=== PATIENT | male | born 1945 | race Caucasian/White ===

== ENCOUNTER 2018-03-14 12:07 | Observation (INO) ==
[2018-03-14 12:42] LABS: Mean Corpuscular HGB Conc 28.1 g/dL (31.6-35.5); Mean Corpuscular Hemoglobin 20.5 pg (28.0-33.3)
[2018-03-14 12:43] LABS: Basophils # 0.1 K/mcL (0.0-0.2); Basophils % 1.5 %; Eosinophils # 0.1 K/mcL (0.0-0.6); Eosinophils % 1.7 %; Hematocrit 35.9 % (37.5-50.1); Hemoglobin 10.1 g/dL (12.9-16.9); Immature Granulocytes % 0.1 % (0-4); Lymphocytes # 0.9 K/mcL (0.6-4.6); Lymphocytes % 12.6 %; Mean Platelet Volume 11.5 fL (9.4-12.4); Monocytes # 0.8 K/mcL (0.0-1.3); Monocytes % 11.2 %; Neutrophils # 5.3 K/mcL (1.6-8.9); Platelet Count 198 K/mcL (140-400); Red Blood Count 4.92 M/mcL (4.19-5.50); Red Cell Distribution Width 19.1 % (11.5-14.5); Segmented Neutrophils % 72.9 %
[2018-03-14 13:03] LABS: Platelet Estimate Normal (Normal)
[2018-03-14 13:04] LABS: Anisocytosis 1+ (Not Present); BUN/Creatinine Ratio 25 (6-26); Blood Urea Nitrogen 25 mg/dL (8-23); Calcium 9.1 mg/dL (8.6-10.3); Carbon Dioxide 26 mEq/L (23-29); Chloride 106 mEq/L (98-107); Glucose 135 mg/dL (70-105); Hypochromasia Present (Not Present); Microcytosis Present (Not Present); Osmolality,Calculated 300 (280-300); Ovalocytes 1+ (Not Present); Poikilocytosis 1+ (Not Present); Sodium 142 mEq/L (136-145); Troponin I < 0.03 ng/mL (< 0.04); eGFR For Non-African Americans > 60 (> 60)
[2018-03-14] MEDS ORDERED: Isovue-370 500 ML INFUS..BTL IV ONE (13:04)
--- NOTE | 2018-03-14 13:28 | Emergency Department Note ---
Addendum entered and electronically signed by Adam Brown DO 03/15/18 02:44: Addendum: Chest x-ray consistent findings for congestive heart failure. CT scan did not reveal pulmonary embolism and confirms vascular congestion to suggest acute exacerbation of heart failure. His BNP is significantly elevated 970. Will administer IV Lasix here and admit the patient for acute CHF exacerbation. His hemoglobin was also lower than prior and stool Hemoccult was positive. At this time he remains otherwise hemodynamically stable and given the hemoglobin greater than 10 does not require immediate transfusion at this time. Patient will be admitted for further observation and management. Impression is CHF exacerbation and G.I. bleed anemia. Original Note: Disposition Clinical Impression: Anemia due to GI blood loss CHF exacerbation Qualifiers: Heart failure type: unspecified Qualified Code(s): I50.9 - Heart failure, unsp ecified Disposition: Admitted As Inpatient Condition: Fair Time of Disposition: 15:12 SOB HPI - General Chief Complaint: ED Shortness of Breath/Dyspnea Stated Complaint: EMELIA Time Seen by Provider: 03/14/18 12:16 Source: patient, family Mode of arrival: ambulatory Limitations: no limitations Nursing Notes Reviewed: Yes Vital Signs Reviewed: Yes - History of Present Illness 72-year-old male history of COPD, heart failure, CAD, DVT currently on Xarelto switched from Eliquis presents emergency department with difficulty in breathing. He reports approximately 1 to 2 weeks ago stepping outside the cold air feel short of breath. Since then he has been progressively more short of breath with dyspnea on exertion and orthopnea. He denies any chest pain. He has been feeling lightheaded denies any falls or head injury. He has noticed some increase in swelling to his legs but does not appear asymmetrical. He was recently switched on his anticoagulants. No recent hospitalizations. No history of pulmonary embolism. He denies any fevers. Does report a cough. Denies any G.I. bleed symptoms such as hemoptysis, hematemesis, bloody stool or blacked tarry stool. Reports taking 20 mg of furosemide daily. Pt Subjective Complaint: shortness of breath, cough - Related Data Home Medications Medication Instructions Recorded Confirmed Furosemide [Lasix] 20 mg PO QAM 04/23/15 03/14/18 Ipratropium/Albuterol Neb [Duoneb] 3 ml IH Q6HR 10/06/15 03/14/18 Naproxen 500 mg PO BID PRN 03/14/18 03/14/18 Omeprazole [PriLOSEC] 20 mg PO BID 03/14/18 03/14/18 Rivaroxaban [Xarelto] 20 mg PO DAILY 03/14/18 03/14/18 Previous Rx's Medication Instructions Recorded Lisinopril [Zestril] 2.5 mg PO DAILY #30 tablet 04/30/15 Metoprolol XL (24 HR) Succ [Toprol 100 mg PO QAM #30 tab.er.24h 04/30/15 Xl] Allergies Allergy/AdvReac Type Severity Reaction Status Date / Time aspirin [ASA] AdvReac Gastrointestinal Verified 03/14/18 12:17 Upset All systems ED: reviewed and negative except as stated. Review of Systems: As Per HPI Constitutional: Reports: weakness. Denies: fever, chills ENT ED: Denies: congestion Cardiovascular: Reports: dyspnea on exertion, orthopnea. Denies: chest pain Respiratory: Reports: cough, dyspnea. Denies: hemoptysis Gastrointestinal: Denies: abdominal pain, nausea, vomiting Genitourinary: Denies: urgency, dysuria Musculoskeletal: Denies: back pain, neck pain Integumentary: Denies: rash, abrasion Neurological: Reports: weakness Psychiatric: Denies: anxiety, depression Endocrine: Reports: fatigue Past Medical History - Past Medical History Attestation: Yes The following information was validated with the patient. Source: patient Medical history: Reports: COPD, coronary artery disease, GERD, hyperlipidemia, hypertension, myocardial infarction Surgical history: Reports: angioplasty/stent, coronary bypass (CABG) Psychiatric history: Reports: no psych history - Social History Smoking Status: Current every day smoker Smokeless Tobacco Status: No Alcohol use: Reports: none Drug use: Reports: none Physical Exam - General Limitations: no limitations General appearance: alert, in no apparent distress - Head Head exam: atraumatic, normocephalic, normal inspection - Eye Eye exam: Present: normal appearance, PERRL, EOMI - ENT ENT exam: normal exam, normal oropharynx, mucous membranes moist - Neck Neck exam: Present: normal inspection, full ROM, trachea midline - Chest Chest inspection: Present: normal inspection, symmetric chest wall rise - Respiratory Respiratory exam: Present: normal lung sounds bilaterally. Absent: respiratory distress, wheezes - Cardiovascular Cardiovascular exam: Present: regular rate, normal rhythm, normal heart sounds. Absent: systolic murmur, diastolic murmur - Expanded Cardiovascular Exam Peripheral pulses: 2+: radial (R), radial (L) - Abdominal Exam Abdominal exam: Present: soft, Non-Tender. Absent: tenderness, distention, guarding, rebound, rigidity - Rectal Exam Technology Analyst present during exam: Yes Rectal exam: Present: normal inspection, normal rectal tone, heme (+) stool, hemorrhoids. Absent: bloody stool - Extremities Exam Extremities exam: Present: normal inspection, full ROM, normal capillary refill, pedal edema (Significant, bilateral up to mid thigh +3). Absent: tenderness, calf tenderness - Back Exam Back exam: Present: normal inspection, full ROM. Absent: tenderness - Neurological Exam Neurological exam: Present: alert, oriented X3 - Psychiatric Psychiatric exam: Present: normal affect, normal mood - Skin Skin exam: Present: warm, dry, other (Rash consistent with psoriasis mostly to his back and buttocks region with scaling). Absent: rash, cyanosis, diaphoresis Course Course Narrative: Patient presents with worsening dyspnea with increased leg swelling. On ex amination he appears fluid overload. Suspect likely CHF exacerbation. Given his history of DVT and recent switch of anticoagulants will also obtain a CT of his chest to evaluate for possible pulmonary embolism. He denies any G.I. bleed symptoms. Patient is afebrile and not tachycardic or hypoxic at this time. Patient will likely require admission - Consultations Consultation #1: Spoke with on-call hospitalist karl Willadr to admit for GI bleed anemia and C HF exacerbation. No further orders at this time Time: 15:12 Vital Signs Temperature 97.4 F L 03/14/18 12:16 Pulse Rate 81 03/14/18 12:16 Respiratory Rate 20 03/14/18 12:16 Blood Pressure 134/88 03/14/18 12:16 O2 Sat by Pulse Oximetry 100 03/14/18 12:16 Temperature 97.4 F L 03/14/18 12:16 Pulse Rate 93 03/14/18 14:30 Respiratory Rate 22 03/14/18 14:30 Blood Pressure 133/87 03/14/18 14:30 O2 Sat by Pulse Oximetry 99 03/14/18 14:30 Oxygen Delivery Oxygen Delivery Room Air Shortness of Breath/Dyspnea - MDM Narrative Medical decision making narrative: Patient was discussed with my attending physician who agrees with ED management and final disposition. They independently evaluated the patient. Please refer to their attestation to this encounter for additional information. This note was generated by [employer] voice recognition software and as a result grammatical or spelling errors may occur using this program. - Medical Records Medical records reviewed: Yes I reviewed the patient's medical records. - Lab Data Lab results reviewed: Yes I reviewed the patient's lab results. Result diagrams: 03/14/18 12:28 03/14/18 12: Lab Results 03/14/18 03/14/18 03/14/18 Range/Units 12:28 12: 12:28 WBC 7.2 (4.3-11.1) K/mcL RBC 4.92 (4.19-5.50) M/mcL Hgb 10.1 L (12.9-16.9) g/dL Hct 35.9 L (37.5-50.1) % MCV 73.0 L (83.0-100.0) fL MCH 20.5 L (28.0-33.3) pg MCHC 28.1 L (31.6-35.5) g/dL RDW 19.1 H (11.5-14.5) % Plt Count 198 (140-400) K/mcL MPV 11.5 (9.4-12.4) fL Immature Gran % 0.1 (0-4) % Seg Neutrophils % 72.9 % Lymphocytes % 12.6 % Monocytes % 11.2 % Eosinophils % 1.7 % Basophils % 1.5 % Neutrophils # 5.3 (1.6-8.9) K/mcL Lymphocytes # 0.9 (0.6-4.6) K/mcL Monocytes # 0.8 (0.0-1.3) K/mcL Eosinophils # 0.1 (0.0-0.6) K/mcL Basophils # 0.1 (0.0-0.2) K/mcL Platelet Estimate Normal (Normal) Hypochromasia Present A (Not Present) Poikilocytosis 1+ A (Not Present) Anisocytosis 1+ A (Not Present) Microcytosis Present A (Not Present) Ovalocytes 1+ A (Not Present) Sodium 142 (136-145) mEq/L Potassium 4.0 (3.5-5.1) mEq/L Chloride 106 (98-107) mEq/L Carbon Dioxide 26 (23-29) mEq/L BUN 25 H (8-23) mg/dL Creatinine 1.00 (0.70-1.30) mg/dL Est GFR ( Amer) > 60 (> 60) Est GFR (Non-Af Amer) > 60 (> 60) BUN/Creatinine Ratio 25 (6-26) Glucose 135 H (70-105) mg/dL Calculated Osmolality 300 (280-300) Calcium 9.1 (8.6-10.3) mg/dL Troponin I < 0.03 (< 0.04) ng/mL B-Natriuretic Peptide 976 H (Less than 100) pg/mL Stool Occult Bld Scrn (Negative) 03/14/18 Range/Units 14:44 WBC (4.3-11.1) K/mcL RBC (4.19-5.50) M/mcL Hgb (12.9-16.9) g/dL Hct (37.5-50.1) % MCV (83.0-100.0) fL MCH (28.0-33.3) pg MCHC (31.6-35.5) g/dL RDW (11.5-14.5) % Plt Count (140-400) K/mcL MPV (9.4-12.4) fL Immature Gran % (0-4) % Seg Neutrophils % % Lymphocytes % % Monocytes % % Eosinophils % % Basophils % % Neutrophils # (1.6-8.9) K/mcL Lymphocytes # (0.6-4.6) K/mcL Monocytes # (0.0-1.3) K/mcL Eosinophils # (0.0-0.6) K/mcL Basophils # (0.0-0.2) K/mcL Platelet Estimate (Normal) Hypochromasia (Not Present) Poikilocytosis (Not Present) Anisocytosis (Not Present) Microcytosis (Not Present) Ovalocytes (Not Present) Sodium (136-145) mEq/L Potassium (3.5-5.1) mEq/L Chloride (98-107) mEq/L Carbon Dioxide (23-29) mEq/L BUN (8-23) mg/dL Creatinine (0.70-1.30) mg/dL Est GFR ( Amer) (> 60) Est GFR (Non-Af Amer) (> 60) BUN/Creatinine Ratio (6-26) Glucose (70-105) mg/dL Calculated Osmolality (280-300) Calcium (8.6-10.3) mg/dL Troponin I (< 0.04) ng/mL B-Natriuretic Peptide (Less than 100) pg/mL Stool Occult Bld Scrn Positive A (Negative) - Radiology Data Radiology results reviewed: Yes I reviewed the patient's radiology results. Chest X-Ray 03/14/18 12:24 IMPRESSION: Features of heart failure, including stable cardiomegaly with central vascular congestion, bilateral effusions and borderline edema. D/ / Jericho Langley / Jericho Langley Interpreting Provider: Jericho Langley Chest CTA 03/14/18 13:04 IMPRESSION: Negative for acute pulmonary embolism. Evaluation limited to the segmental level in the lower lobes due to motion artifact. Features of congestive heart failure, including cardiomegaly with bilateral pleural effusions (left greater than right), abdominal ascites and soft tissue anasarca. There may mild interstitial edema present. Difficult to exclude superimposed infectious airspace disease within atelectatic left lower lobe due to phase of contrast. Mild right pleural thickening likely reflects sequela of prior chronic pleural process. Associated rounded atelectasis at the right lung base. Mildly enlarged mediastinal lymph node, presumably reactive. D/ / Jericho Langley / Jericho Langley Interpreting Provider: Jericho Langley - EKG Data EKG attestation: Yes I reviewed and interpreted this EKG. EKG results narrative: EKG performed 03/14/2018 at 1321 atrial fibrillation 72 beats per minute with paced ventricular rhythm, no ST elevation, no Sgarbossa criteria. Compared to prior EKG performed 10/06/2015 shows sinus rhythm with first-degree AV block MA interval 221, otherwise no acute ischemic changes. Attestation Statement - Attestation Attestation: I, Jackson Alberts, examined this patient and my medical decision-making was reviewed with the INSPECTION MANAGER/PA/Advanced Practice Nurse/Resident Physician. I agree with the documented findings, disposition and treatment plan as described except to the extent set forth below. 72-year-old male presents emergency Department with concerns of difficulty in breathing. Patient states he is walking outside about 2 weeks ago when he developed acute onset shortness of breath and has persisted ever since. Patient noted increased swelling in his bilateral lower extremities, he 9-year-old states he is unable to lay flat without getting becoming short of breath. He is unable to ambulate in the house and perform his activities of daily living without becoming short of breath. Patient states he has multiple clots in his legs and he is currently taking Xarelto. He recently switched from Eliquis to Xarelto. CTA of his chest did not show evidence of acute infiltrate or PE. Rectal exam had positive guaiac stool. Patient is mildly more anemic compared to his previous labs. He will be admitted to the hospitalist for further care and evaluation.
[2018-03-14] MEDS ORDERED: Furosemide 20 MG/2 ML VIAL IVP ONE (14:36)
[2018-03-14] MEDS ORDERED: Naloxone 0.4 MG/ML INJ IVP PRN (15:23)
[2018-03-14] MEDS ORDERED: Acetaminophen 325 MG TABLET PO PRN (15:23)
[2018-03-14] MEDS ORDERED: *HR* HYDROcodone/Acet 5/325 mg TABLET PO PRN (15:23)
[2018-03-14] MEDS ORDERED: Ondansetron 4 MG/2 ML VIAL IVP PRN (15:23)
--- NOTE | 2018-03-14 16:10 | Internal Med History&Physical ---
Date of Encounter: 03/14/18 Time of Encounter: 16:07 Internal Medicine - H&P: HPI Chief complaint: Shortness of breath and bilateral lower extremity edema Admitted From: Emergency Dept Plans for Post Hospital Care: Home History of present illness: Mr. Elkins is a 72 year old male known past medical history of ischemic cardiomyopathy, COPD, systolic congestive heart failure, CAD, Chronic a fib on Xarelto, DVT currently on xarelto patient does follow with the oil dispatcher Dr. Lyon as outpatient, now he presented to ER complaining about a progressively worsening shortness of breath, bilateral lower extremity edema as well as weight gain almost 8 to 10 pounds within last 10 days. He denied any chest pain. In t he ER his chest x-ray showed significant vascular condition. His chest CTA showed no acute pulmonary embolism or he does have features of congestive heart failure with Cardizem any and bilateral pleural effusion left greater than right, also have soft tissue anasarca. Past Med Surg Social Fam HX - Past Medical History Medical history: COPD, coronary artery disease, GERD, hyperlipidemia, hypertension, myocardial infarction Additional medical history: PULMONARY HTN Psychiatric history: no psych history - Past Surgical History Surgical History: angioplasty/stent, coronary bypass (CABG) Additional surgical history: CABG X 2 - Social History Smoking Status: Current every day smoker Smokeless Tobacco Status: No Alcohol use: none Drug use: none - Family History Mother Living Status: Hx Family Cardiac Disorders: Yes Hx Family Respiratory Disorders: No Hx Family Cancer: No Hx Family GI Disorders: No Hx Family Endocrine Disorder: Yes (DM) Father Living Status: Hx Family Cardiac Disorders: No Hx Family Respiratory Disorders: No Hx Family Cancer: Yes (Prostate) Hx Family GI Disorders: No Hx Family Endocrine Disorder: Yes (DM) Internal Medicine - H&P: Meds Furosemide [Lasix] 20 mg PO QAM 04/23/15 [History] Lisinopril [Zestril] 2.5 mg PO DAILY #30 tablet 04/30/15 [Rx] Metoprolol XL (24 HR) Succ [Toprol Xl] 100 mg PO QAM #30 tab.er.24h 04/30/15 [Rx] Ipratropium/Albuterol Neb [Duoneb] 3 ml IH Q6HR 10/06/15 [History] Naproxen 500 mg PO BID PRN 03/14/18 [History] Omeprazole [PriLOSEC] 20 mg PO BID 03/14/18 [History] Rivaroxaban [Xarelto] 20 mg PO DAILY 03/14/18 [History] Allergy/AdvReac Type Severity Reaction Status Date / Time aspirin [ASA] AdvReac Gastrointestinal Verified 03/14/18 12:17 Upset All Systems PM: A 10-system review of systems was performed and is negative for pertinent findings except as documented above in the HPI. Review of systems: All the systems are reviewed everything is benign except the systems and symptoms I mentioned in the history of present illness - Constitutional Vitals: Temp Pulse Resp BP Pulse Ox 97.4 F L 79 22 155/99 99 03/14/18 12:16 03/14/18 15:33 03/14/18 15:33 03/14/18 15:33 03/14/18 15:33 General appearance: Present: cooperative, A&O X 3, no acute distress, answers questions appropriately Exam: See below - Head Head exam: Present: atraumatic, normal inspection - Neck Neck exam general surgery: Present: supple - Respiratory Respiratory exam: Present: decreased breath sounds, rales, tachypnea. Absent: respiratory distress, rhonchi, wheezes - Cardiovascular Cardiovascular exam: Present: RRR, +S1, +S2. Absent: tachycardia - GI/Abdominal GI/Abdominal exam: Present: normal bowel sounds, soft. Absent: rebound, rigid, tenderness - Extremities Exam Extremities exam: Present: pedal edema (3+ pitting edema). Absent: calf tenderness, tenderness - Back Exam Back exam: Absent: CVA tenderness (L), CVA tenderness (R) - Neurological Exam Neurological exam: Present: alert, oriented X3 - Psychiatric Psychiatric exam: Present: normal affect, normal mood - Skin Skin exam: Absent: rash Internal Med - H&P Results - Labs CBC & Chem 7: 03/14/18 12:28 03/14/18 12:28 Labs: Short CBC 03/14/18 Range/Units 12:28 WBC 7.2 (4.3-11.1) K/mcL Hgb 10.1 L (12.9-16.9) g/dL Hct 35.9 L (37.5-50.1) % Plt Count 198 (140-400) K/mcL Neutrophils # 5.3 (1.6-8.9) K/mcL BMP 03/14/18 12:28 Sodium 142 Potassium 4.0 Chloride 106 Carbon Dioxide 26 BUN 25 H Creatinine 1.00 Glucose 135 H Calcium 9.1 Cardiac Enzymes 03/14/18 Range/Units 12:28 Troponin I < 0.03 (< 0.04) ng/mL - Impressions ITS Impressions Chest X-Ray 03/14/18 12:24 IMPRESSION: Features of heart failure, including stable cardiomegaly with central vascular congestion, bilateral effusions and borderline edema. D/ / Jericho Langley / Jericho Langley Interpreting Provider: Jericho Langley Chest CTA 03/14/18 13:04 IMPRESSION: Negative for acute pulmonary embolism. Evaluation limited to the segmental level in the lower lobes due to motion artifact. Features of congestive heart failure, including cardiomegaly with bilateral pleural effusions (left greater than right), abdominal ascites and soft tissue anasarca. There may mild interstitial edema present. Difficult to exclude superimposed infectious airspace disease within atelectatic left lower lobe due to phase of contrast. Mild right pleural thickening likely reflects sequela of prior chronic pleural process. Associated rounded atelectasis at the right lung base. Mildly enlarged mediastinal lymph node, presumably reactive. D/ / Jericho Lagnley / Jericho Langley Interpreting Provider: Jericho Langley - Assessment and plan (1) Acute on chronic systolic CHF (congestive heart failure) Current Visit: Yes Status: Acute Assessment and plan: Place the patient into Tele for observation reviewed his echocardiogram from 2015 showed LVEF 20-25% his chest x-ray findings, anasarca presentation, elevated BNP and weight gain he is in acute exacerbation need aggressive IV databases started him on IV Lasix 40 mg b.i.d. strict I & O daily weights continue him on tele will trend on his troponin (2) Anasarca Current Visit: Yes Status: Acute Assessment and plan: due to systolic CHF exacerbation continue aggressive databases (3) Chronic a-fib Current Visit: Yes Status: Acute Assessment and plan: Rate controlled with the metoprolol on Xarelto for anti coag (4) Hypertension Current Visit: No Status: Acute Assessment and plan: Stable with current home medications resumed all home medications Qualifiers: Hypertension type: essential hypertension Qualified Code(s): I10 - Essential (primary) hypertension (5) CAD (coronary artery disease) Current Visit: No Status: Chronic Assessment and plan: No chest pain continue home medications Qualifiers: Coronary Disease-Associated Artery/Lesion type: [place] artery [place] vs. transplanted heart: [place] heart Associated angina: without angina Qualified Code(s): I25.10 - Atherosclerotic heart disease of [place] coronary artery without angina pectoris (6) COPD (chronic obstructive pulmonary disease) Current Visit: No Status: Chronic Assessment and plan: Not in exacerbation Duonebs as needed for now Qualifiers: COPD type: emphysema Emphysema type: unspecified Qualified Code(s): J43.9 - Emphysema, unspecified (7) Hx of CABG Current Visit: No Status: Chronic (8) Ischemic cardiomyopathy Current Visit: No Status: Chronic (9) Tobacco abuse Current Visit: No Status: Chronic Assessment and plan: Counseled to quit smoking placed on nicotine patch - Time Spent With Patient Total time spent is greater than 50% in coordination of care (as documented) at patient's floor/unit and/or counseling patient:
--- NOTE | 2018-03-14 16:38 | Electrocardiograph Report ---
[place] [facility] [email or web address] Test Date: 2018-03-14 Pat Name: Ruddy Elkins Department: [id number] Room: 3B33 Gender: M Field Reimbursement Manager: : 1945 Requested By: Adam Brown Order Number: [id number] Reading MD: Radu Gutiérrez Measurements Intervals [place] Rate: 72 P: [place]: QRS: 243 QRSD: 168 T: 58 QT: 491 QTc: 538 Interpretive Statements Afib/flut and V-paced complexes No further analysis attempted due to paced rhythm Electronically Signed On 03-14-2018 16:36:40 EST by Radu Gutiérrez
[2018-03-14] MEDS ORDERED: Perflutren Lipid Microsphere 1.3 ML in 0.9 % Sodium Chloride 8.7 ML IVP ONE (19:03)
[2018-03-14] MEDS: Ipratropium/Albuterol Neb 3 ML IH SCH ×2 (19:15→22:41)
[2018-03-14] MEDS: Furosemide 40 MG/4 ML VIAL IVP SCH (20:55)
[2018-03-15 01:11] LABS: Mean Corpuscular HGB Conc 28.2 g/dL (31.6-35.5); Mean Corpuscular Hemoglobin 20.6 pg (28.0-33.3)
[2018-03-15 01:12] LABS: Hematocrit 34.4 % (37.5-50.1); Hemoglobin 9.7 g/dL (12.9-16.9); Platelet Count 195 K/mcL (140-400); Red Blood Count 4.71 M/mcL (4.19-5.50); Red Cell Distribution Width 18.6 % (11.5-14.5)
[2018-03-15 01:32] LABS: Alanine Aminotransferase 9 Units/L (7-52); Albumin 3.7 g/dL (3.5-5.7); Albumin/Globulin Ratio 1.3 (1.1-2.2); Alkaline Phosphatase 75 Units/L (34-104); Aspartate Amino Transferase 19 Units/L (13-39); BUN/Creatinine Ratio 20 (6-26); Bilirubin,Total 0.9 mg/dL (0.3-1.0); Blood Urea Nitrogen 23 mg/dL (8-23); Calcium 8.9 mg/dL (8.6-10.3); Carbon Dioxide 27 mEq/L (23-29); Chloride 105 mEq/L (98-107); Cholesterol 96 mg/dL (< 200); Globulin 2.8 g/dL (2.4-3.5); Glucose 120 mg/dL (70-105); HDL Cholesterol 24 mg/dL (40-59); LDL Cholesterol,Calculated 60 mg/dL (0-99); Magnesium 1.7 mg/dL (1.6-2.6); Osmolality,Calculated 297 (280-300); Potassium 3.9 mEq/L (3.5-5.1); Sodium 141 mEq/L (136-145); Total Protein 6.5 g/dL (6.4-8.9); Triglycerides 61 mg/dL (< 150); eGFR For Non-African Americans > 60 (> 60)
[2018-03-15] MEDS: Ipratropium/Albuterol Neb 3 ML IH SCH ×3 (04:30→15:40)
[2018-03-15] MEDS: Furosemide 40 MG/4 ML VIAL IVP SCH (07:49)
[2018-03-15] MEDS ORDERED: Metoprolol XL (24 HR) Succ 50 MG TAB.ER.24H PO SCH (09:00)
[2018-03-15] MEDS ORDERED: *HR* Rivaroxaban 10 MG TABLET PO SCH (09:00)
[2018-03-15 12:23] VITALS: BP 122/74
--- NOTE | 2018-03-15 14:05 | Discharge Summary ---
- NOTES TO OUTPATIENT PROVIDER Notes to Outpatient Provider: Follow up with PCP in one week. Follow-up with cardiology Dr. Lyon in one to 2 weeks. please take Lasix 40 mg PO b.i.d. for 3 days then continue 40 mg PO daily Date of Encounter: 03/15/18 Time of Encounter: 14:01 - Discharge Diagnosis (1) Acute on chronic systolic CHF (congestive heart failure) Priority: Primary Status: Acute (2) Anasarca Priority: Primary Status: Acute (3) Chronic a-fib Priority: Secondary Status: Acute (4) Hypertension Priority: Secondary Status: Acute Qualifiers: Hypertension type: essential hypertension Qualified Code(s): I10 - Essential (primary) hypertension (5) CAD (coronary artery disease) Priority: Secondary Status: Chronic Qualifiers: Coronary Disease-Associated Artery/Lesion type: [place] artery [place] vs. transplanted heart: [place] heart Associated angina: without angina Qualified Code(s): I25.10 - Atherosclerotic heart disease of [place] coronary artery without angina pectoris (6) COPD (chronic obstructive pulmonary disease) Priority: Secondary Status: Chronic Qualifiers: COPD type: emphysema Emphysema type: unspecified Qualified Code(s): J43.9 - Emphysema, unspecified (7) Hx of CABG Priority: Secondary Status: Chronic (8) Ischemic cardiomyopathy Priority: Secondary Status: Chronic (9) Tobacco abuse Priority: Secondary Status: Chronic Hospital course: Mr. Elkins is a 72 year old male known past medical history of ischemic cardiomyopathy, COPD, systolic congestive heart failure, CAD, Chronic a fib on Xarelto, DVT currently on xarelto patient does follow with the rougher helper Dr. Lyon as outpatient, now he presented to ER complaining about a progressively worsening shortness of breath, bilateral lower extremity edema as well as weight gain almost 8 to 10 pounds within last 10 days. He denied any chest pain. In the ER his chest x-ray showed significant vascular condition. His chest CTA showed no acute pulmonary embolism or he does have features of congestive heart failure with Cardizem any and bilateral pleural effusion left greater than right, also have soft tissue anasarca. Patient was admitted in the hospital and placed my installation helper. His serial troponin came back is negative. He was started on aggressive IV diuresis with Lasix 40mg BID. Patient stated he is feeling a lot better today. He still have moderate edema in bilateral lower extremities. Patient wanted to go home today. His echocardiogram came back as LVEF at 25% with the moderately dilated left ventricle and severe pulmonary hypertension. Complaint Analyst the patient quit smoking. Also asked the patient to take Lasix 40 mg PO b.i.d. for 3 days then continue daily. Recommend to follow with the primary care physician as an outpatient - Time Spent with Patient Total time spent providing and/or coordinating discharge services: - Discharge Medications Prescriptions: Furosemide [Lasix] 40 mg PO DAILY #35 tablet Potassium Chloride [K-Tab ER] 20 meq PO DAILY #30 tablet.er Home Medications: Lisinopril [Zestril] 2.5 mg PO DAILY #30 tablet 04/30/15 [Rx] Metoprolol XL (24 HR) Succ [Toprol Xl] 100 mg PO QAM #30 tab.er.24h 04/30/15 [Rx] Ipratropium/Albuterol Neb [Duoneb] 3 ml IH Q6HR 10/06/15 [History] Omeprazole [PriLOSEC] 20 mg PO BID 03/14/18 [History] Rivaroxaban [Xarelto] 20 mg PO DAILY 03/14/18 [History] Furosemide [Lasix] 40 mg PO DAILY #35 tablet 03/15/18 [Rx] Potassium Chloride [K-Tab ER] 20 meq PO DAILY #30 tablet.er 03/15/18 [Rx] Allergies/Adverse Reactions: Allergy/AdvReac Type Severity Reaction Status Date / Time aspirin [ASA] AdvReac Gastrointestinal Verified 03/14/18 12:17 Upset Date of admission: 03/14/18 15:32 Primary care physician: Jose Daniel Cordero Colopy - Constitutional Vitals: Temp Pulse Resp BP Pulse Ox 97.8 F 75 16 122/74 97 03/15/18 12:21 03/15/18 12:21 03/15/18 12:21 03/15/18 12:21 03/15/18 12:21 General appearance: Present: cooperative, A&O X 3, no acute distress, answers questions appropriately Exam: Gen: Alert, awake, Oriented to time,place and person Chest: Diminished breath sounds B/L, No wheezing, No crackles, No rales Heart: S1S2+ RRR No murmurs Abd: Soft, NT, BS +, No organomegaly Ext: moderate edema, pulses are palpable, No calf tenderness Neuro : Benign findings Skin: No rash. - Patient Status Disposition: Home, Self-Care Condition: Good Overall status at discharge: patient is back to baseline - Discharge Instructions Follow Up With: Jose Daniel Acosta DO [Primary Care Provider] - - Diet and Activity Activity: increase activity as tolerated Diet: low salt diet
== END 2018-03-15 17:03 | disposition home or self-care (01) ==
LOC: 3BNU 12:07 → EMEROOARM 12:07 → SUATTDRO 15:32 → 3BNU 15:56
PROVIDERS: ADMIT Internal Medicine; ATTEND Family Medicine

== ENCOUNTER 2018-09-03 13:27 | Inpatient (IN) ==
[2018-09-03] MEDS ORDERED: Ipratropium/Albuterol Neb 3 ML IH ONE (13:40)
--- NOTE | 2018-09-03 13:48 | Emergency Department Note ---
Disposition Clinical Impression: CHF exacerbation Qualifiers: Heart failure type: unspecified Qualified Code(s): I50.9 - Heart failure, unspecified Disposition: Admitted As Inpatient Condition: Good Time of Disposition: 16:16 General Adult HPI - General Chief complaint: ED Shortness of Breath/Dyspnea Stated complaint: EMELIA Time Seen by Provider: 09/03/18 13:31 Source: patient, family Mode of arrival: ambulatory Limitations: no limitations Nursing Notes Reviewed: Yes Vital Signs Reviewed: Yes - History of Present Illness HPI Narrative: 73-year-old male with significant past medical history of COPD not on any current oxygen at home and CHF presenting to the emergency part chief complaint difficulty in breathing. Patient states for the past 2 days he has had increased work of breathing. He has also gained 25 pounds over the past few weeks. He denies any fevers or changes in his sputum production. Denies any known sick contacts. He states he has had some associated nausea and feels that his abdomen is distended but there is no pain, vomiting or changes in his bowel movements. Denies any chest pain at this time. Takes a baby aspirin daily. Pain Scale: 5 - Related Data Home Medications Medication Instructions Recorded Confirmed Omeprazole [PriLOSEC] 20 mg PO BID 03/14/18 06/22/18 Rivaroxaban [Xarelto] 20 mg PO DAILY 03/14/18 06/23/18 Albuterol Neb [Proventil Neb] 2.5 mg IH Q8H PRN 06/23/18 06/23/18 Albuterol Sulfate [Ventolin Hfa] 2 puff IH Q4-6H PRN 06/23/18 06/23/18 Metoprolol Succinate [Toprol Xl] 100 mg PO DAILY 06/23/18 06/23/18 Multivitamin [Daily Multiple 1 tab PO DAILY 06/23/18 06/23/18 Vitamin] Previous Rx's Medication Instructions Recorded Potassium Chloride [K-Tab ER] 20 meq PO DAILY #30 tablet.er 03/15/18 Doxycycline 100 mg PO BID #15 capsule 06/27/18 Ferrous Sulfate 325 mg PO DAILY #30 tablet 06/27/18 Furosemide [Lasix] 20 mg PO BID #60 tablet 06/27/18 Lisinopril [Zestril] 2.5 mg PO DAILY #30 tablet 06/27/18 Metoprolol XL (24 HR) Succ [Toprol 150 mg PO QAM #90 tab.er.24h 06/27/18 Xl] Warfarin [Coumadin] 4 mg PO 1800 #15 tablet 06/27/18 Allergies Allergy/AdvReac Type Severity Reaction Status Date / Time aspirin [ASA] AdvReac Gastrointestinal Verified 09/03/18 13:34 Upset All systems ED: reviewed and negative except as stated. Constitutional: Reports: weight change. Denies: fever Eyes: Reports: as per HPI ENT ED: Reports: as per HPI Cardiovascular: Reports: dyspnea on exertion. Denies: chest pain Respiratory: Reports: cough, dyspnea Gastrointestinal: Reports: nausea. Denies: abdominal pain Genitourinary: Reports: as per HPI Musculoskeletal: Reports: as per HPI Integumentary: Reports: as per HPI Neurological: Reports: as per HPI Psychiatric: Reports: as per HPI Endocrine: Reports: as per HPI Hematological/Lymphatic: Reports: as per HPI Allergic/Immunologic: Reports: as per HPI Past Medical History - Past Medical History Attestation: Yes The following information was validated with the patient. Medical history: Reports: CHF, COPD, coronary artery disease, GERD, hyperlipidemia, hypertension, myocardial infarction Surgical history: Reports: angioplasty/stent, coronary bypass (CABG) Psychiatric history: Reports: no psych history - Social History Smoking Status: Current every day smoker Smokeless Tobacco Status: No Alcohol use: Reports: none Drug use: Reports: none Physical Exam - General Limitations: no limitations General appearance: alert, in no apparent distress - Head Head exam: atraumatic, normocephalic, normal inspection - Eye Eye exam: Absent: scleral icterus - ENT ENT exam: mucous membranes moist - Neck Neck exam: Present: full ROM - Chest Chest inspection: Present: symmetric chest wall rise - Respiratory Respiratory exam: Present: other (Is not sure and expiratory wheezing in the upper lung villatoro. Decreased breath sounds in bilateral lower villatoro) - Cardiovascular Cardiovascular exam: Present: normal rhythm, tachycardia, normal heart sounds - Abdominal Exam Abdominal exam: Present: soft, Non-Tender. Absent: guarding, rebound - Extremities Exam Extremities exam: Present: pedal edema (2+ pitting edema bilateral lower extremities) - Neurological Exam Neurological exam: Present: alert, oriented X3 - Psychiatric Psychiatric exam: Present: normal affect - Skin Skin exam: Present: warm Course Course Narrative: 73-year-old male presenting to the emergency department for increased work of breathing. In the room he is to get neck and tachycardic. Physical exam is significant for inspiratory and expiratory wheezing and decreased breath sounds in the bilateral bases. He does have 2+ pitting edema in the bilateral lower extremities and some mild abdominal distention although his abdomen is soft and nontender. Concern for CHF exacerbation versus COPD exacerbation. Due to his increased work of breathing will place him on BiPAP. We will obtain basic laboratory analysis including troponin, EKG and chest x-ray. Disposition most likely admission but pending workup. Patient agrees with this plan. - Reevaluation(s) Reevaluation #1: Patient feeling significantly better after being placed on BiPAP. Laboratory analysis shows chronic anemia, elevated lactic acid and elevated BNP. EKG initially completed was concerning for possible pacer spikes going off therefore his defibrillator was interrogated and did not show any signs of firing. Chest x-ray shows Bilateral pleural effusions with possible underlying infectious etiology. At this time will cover the patient with azithromycin and ceftriaxone. Blood cultures of already been collected. Due to his fluid overloaded on exam and chest x-ray along with elevated BNP we will not provide fluid resuscitation at this time. We will provide with 40 mg of IV Lasix. I spoke with the hospitalist on-call who agrees to accept the patient for admission at this time. He remains alert and oriented 3 and hemodynamically stable. Patient agrees with this plan. Vital Signs Temperature 97.5 F L 09/03/18 13:32 Pulse Rate 125 09/03/18 13:32 Respiratory Rate 25 09/03/18 13:32 Blood Pressure 143/79 09/03/18 13:32 O2 Sat by Pulse Oximetry 98 09/03/18 13:32 Temperature 97.5 F L 09/03/18 13:32 Pulse Rate 100 09/03/18 15:09 Respiratory Rate 18 09/03/18 15:36 Blood Pressure 112/84 09/03/18 15:36 O2 Sat by Pulse Oximetry 100 09/03/18 15:36 Oxygen Delivery Oxygen Delivery Room Air Medical Decision Making - Lab Data Result diagrams: 09/03/18 13:47 09/03/18 13:47 Lab Results 09/03/18 09/03/18 09/03/18 Range/Units 13:47 13:47 13:47 WBC 7.0 (4.3-11.1) K/mcL RBC 4.80 (4.19-5.50) M/mcL Hgb 9.7 L (12.9-16.9) g/dL Hct 35.3 L (37.5-50.1) % MCV 73.5 L (83.0-100.0) fL MCH 20.2 L (28.0-33.3) pg MCHC 27.5 L (31.6-35.5) g/dL RDW 22.1 H (11.5-14.5) % Plt Count 173 (140-400) K/mcL MPV TNP Immature Gran % 0.4 (0-4) % Seg Neutrophils % 77.3 % Lymphocytes % 8.6 % Monocytes % 11.4 % Eosinophils % 1.0 % Basophils % 1.3 % Neutrophils # 5.4 (1.6-8.9) K/mcL Lymphocytes # 0.6 (0.6-4.6) K/mcL Monocytes # 0.8 (0.0-1.3) K/mcL Eosinophils # 0.1 (0.0-0.6) K/mcL Basophils # 0.1 (0.0-0.2) K/mcL Platelet Estimate Normal (Normal) Hypochromasia Present A (Not Present) Anisocytosis 2+ A (Not Present) Microcytosis Present A (Not Present) Sodium 140 (136-145) mEq/L Potassium 3.8 (3.5-5.1) mEq/L Chloride 102 (98-107) mEq/L Carbon Dioxide 28 (23-29) mEq/L BUN 15 (8-23) mg/dL Creatinine 1.00 (0.70-1.30) mg/dL Est GFR ( Amer) > 60 (> 60) Est GFR (Non-Af Amer) > 60 (> 60) BUN/Creatinine Ratio 15 (6-26) Glucose 134 H (70-105) mg/dL Calculated Osmolality 293 (280-300) Lactic Acid 2.6 H (0.5-2.2) mmol/L Calcium 9.5 (8.6-10.3) mg/dL Magnesium 1.7 (1.6-2.6) mg/dL Total Bilirubin 1.7 H (0.3-1.0) mg/dL Direct Bilirubin 0.8 H (0.0-0.2) mg/dL Indirect Bilirubin 0.9 (0.0-1.2) mg/dL AST 16 (13-39) Units/L ALT 9 (7-52) Units/L Alkaline Phosphatase 69 (34-104) Units/L Troponin I 0.03 (< 0.04) ng/mL B-Natriuretic Peptide (Less than 100) pg/mL Serum Total Protein 7.1 (6.4-8.9) g/dL Albumin 3.9 (3.5-5.7) g/dL Globulin 3.2 (2.4-3.5) g/dL Albumin/Globulin Ratio 1.2 (1.1-2.2) Urine Color (Yellow) Urine Clarity (Clear) Urine pH (5.0-8.0) pH Units Ur Specific [place] (1.010-1.025) Urine Protein (Neg-Trace) mg/dL Urine Glucose (UA) (Normal) mg/dL Urine Ketones (Negative) mg/dL Urine Blood (Negative) Urine Nitrite (Negative) Urine Bilirubin (Negative) Urine Urobilinogen (Normal) mg/dL Ur Leukocyte Esterase (Negative) Ur Culture Indicated? (NO) 09/03/18 09/03/18 Range/Units 13:47 15:01 WBC (4.3-11.1) K/mcL RBC (4.19-5.50) M/mcL Hgb (12.9-16.9) g/dL Hct (37.5-50.1) % MCV (83.0-100.0) fL MCH (28.0-33.3) pg MCHC (31.6-35.5) g/dL RDW (11.5-14.5) % Plt Count (140-400) K/mcL MPV Immature Gran % (0-4) % Seg Neutrophils % % Lymphocytes % % Monocytes % % Eosinophils % % Basophils % % Neutrophils # (1.6-8.9) K/mcL Lymphocytes # (0.6-4.6) K/mcL Monocytes # (0.0-1.3) K/mcL Eosinophils # (0.0-0.6) K/mcL Basophils # (0.0-0.2) K/mcL Platelet Estimate (Normal) Hypochromasia (Not Present) Anisocytosis (Not Present) Microcytosis (Not Present) Sodium (136-145) mEq/L Potassium (3.5-5.1) mEq/L Chloride (98-107) mEq/L Carbon Dioxide (23-29) mEq/L BUN (8-23) mg/dL Creatinine (0.70-1.30) mg/dL Est GFR ( Amer) (> 60) Est GFR (Non-Af Amer) (> 60) BUN/Creatinine Ratio (6-26) Glucose (70-105) mg/dL Calculated Osmolality (280-300) Lactic Acid (0.5-2.2) mmol/L Calcium (8.6-10.3) mg/dL Magnesium (1.6-2.6) mg/dL Total Bilirubin (0.3-1.0) mg/dL Direct Bilirubin (0.0-0.2) mg/dL Indirect Bilirubin (0.0-1.2) mg/dL AST (13-39) Units/L ALT (7-52) Units/L Alkaline Phosphatase (34-104) Units/L Troponin I (< 0.04) ng/mL B-Natriuretic Peptide 715 H (Less than 100) pg/mL Serum Total Protein (6.4-8.9) g/dL Albumin (3.5-5.7) g/dL Globulin (2.4-3.5) g/dL Albumin/Globulin Ratio (1.1-2.2) Urine Color Yellow (Yellow) Urine Clarity Clear (Clear) Urine pH 7.5 (5.0-8.0) pH Units Ur Specific [place] < 1.005 L (1.010-1.025) Urine Protein Trace (Neg-Trace) mg/dL Urine Glucose (UA) Normal (Normal) mg/dL Urine Ketones Negative (Negative) mg/dL Urine Blood Negative (Negative) Urine Nitrite Negative (Negative) Urine Bilirubin Negative (Negative) Urine Urobilinogen 4.0 H (Normal) mg/dL Ur Leukocyte Esterase Negative (Negative) Ur Culture Indicated? NO (NO) - EKG Data EKG #1 EKG attestation: Yes I reviewed and interpreted this EKG. EKG results narrative: Paced rhythm. 107 beats per minute. MI interval 112, QRS 125, QTC 47. No sign of acute ST segment elevation or ischemia. EKG #2 EKG attestation: Yes I reviewed and interpreted this EKG. EKG results narrative: Paced rhythm. 107 beats per minute. MI interval 112, QRS 125, QTC 47. No sign of acute ST segment elevation or ischemia.
[2018-09-03 14:15] LABS: Immature Granulocytes % 0.4 % (0-4)
[2018-09-03 14:16] LABS: Basophils # 0.1 K/mcL (0.0-0.2); Basophils % 1.3 %; Eosinophils # 0.1 K/mcL (0.0-0.6); Hematocrit 35.3 % (37.5-50.1); Hemoglobin 9.7 g/dL (12.9-16.9); Lymphocytes # 0.6 K/mcL (0.6-4.6); Lymphocytes % 8.6 %; Mean Corpuscular HGB Conc 27.5 g/dL (31.6-35.5); Mean Corpuscular Hemoglobin 20.2 pg (28.0-33.3); Mean Corpuscular Volume 73.5 fL (83.0-100.0); Monocytes # 0.8 K/mcL (0.0-1.3); Monocytes % 11.4 %; Neutrophils # 5.4 K/mcL (1.6-8.9); Platelet Count 173 K/mcL (140-400); Red Cell Distribution Width 22.1 % (11.5-14.5); Segmented Neutrophils % 77.3 %
[2018-09-03 14:26] LABS: Alanine Aminotransferase 9 Units/L (7-52); Albumin 3.9 g/dL (3.5-5.7); Albumin/Globulin Ratio 1.2 (1.1-2.2); Alkaline Phosphatase 69 Units/L (34-104); Aspartate Amino Transferase 16 Units/L (13-39); BUN/Creatinine Ratio 15 (6-26); Bilirubin,Direct 0.8 mg/dL (0.0-0.2); Bilirubin,Indirect 0.9 mg/dL (0.0-1.2); Bilirubin,Total 1.7 mg/dL (0.3-1.0); Blood Urea Nitrogen 15 mg/dL (8-23); Calcium 9.5 mg/dL (8.6-10.3); Carbon Dioxide 28 mEq/L (23-29); Chloride 102 mEq/L (98-107); Globulin 3.2 g/dL (2.4-3.5); Glucose 134 mg/dL (70-105); Magnesium 1.7 mg/dL (1.6-2.6); Osmolality,Calculated 293 (280-300); Potassium 3.8 mEq/L (3.5-5.1); Sodium 140 mEq/L (136-145); Total Protein 7.1 g/dL (6.4-8.9); Troponin I 0.03 ng/mL (< 0.04); eGFR For Non-African Americans > 60 (> 60)
[2018-09-03 14:37] LABS: Anisocytosis 2+ (Not Present); Hypochromasia Present (Not Present); Microcytosis Present (Not Present); Platelet Estimate Normal (Normal)
[2018-09-03] MEDS ORDERED: Furosemide 40 MG/4 ML VIAL IVP ONE (15:03)
[2018-09-03] MEDS ORDERED: Azithromycin 500 MG in D5% in Water 250 ML IVPB ONE (15:39)
[2018-09-03] MEDS ORDERED: cefTRIAXone 1,000 MG in Water for inj. (sterile) 20 ML 10 ML IVP ONE (15:40)
--- NOTE | 2018-09-03 15:49 | Internal Med History&Physical ---
Date of Encounter: 09/03/18 Time of Encounter: 15:44 Internal Medicine - H&P: HPI Chief complaint: SOB Admitted From: Emergency Dept Plans for Post Hospital Care: Home History of present illness: Mr. 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 He gained almost 25 pounds in last 2-3 weeks. Patient stated that he has been compliant on his medication and did not miss any diuretics. In ER patient was found tachycardic tachypneic using accessory muscles but not hypoxic therefore BiPAP was started. Bilateral wheezing and crackles was found on lung examination therefore he got treated for COPD and CHF with DuoNeb and 1 dose of Lasix. Rocephin and Zithromax was also given with concern of pneumonia. Initial lab with normal white count, raised lactic acid and raised BNP. ER physician called on-call hospitalists for the admission for further management of shortness of breath with possible CHF exacerbation COPD exacerbation, pneumonia and increased lactic acid. He complain of chills nausea cough shortness of breath generalized weakness fa tigue decreased appetite. He denies fever vomiting chest pain headache dizziness abdominal pain diarrhea urinary complaint Past Med Surg Social Fam HX - Past Medical History Medical history: CHF, COPD, coronary artery disease, GERD, hyperlipidemia, hypertension, myocardial infarction Additional medical history: PULMONARY HTN Psychiatric history: no psych history - Past Surgical History Surgical History: angioplasty/stent, coronary bypass (CABG) Additional surgical history: CABG X 2 - Social History Smoking Status: Current every day smoker Smokeless Tobacco Status: No Alcohol use: none Drug use: none - Family History Mother Family Member Ethnicity: Non- Living Status: Hx Family Cardiac Disorders: No Hx Family Respiratory Disorders: No Hx Family Cancer: No Hx Family GI Disorders: No Hx Family Endocrine Disorder: Yes Father Adopted: No Family Member Ethnicity: Non- Living Status: Hx Family Cardiac Disorders: No Hx Family Respiratory Disorders: No Hx Family Cancer: Yes Hx Family GI Disorders: No Hx Family Endocrine Disorder: No Hx Family Neuromuscular Disorders: No Hx Family Neurologic Disorders: No Hx Family HEENT Disorders: No Hx Family Autoimmune Disorders: No Internal Medicine - H&P: Meds Omeprazole [PriLOSEC] 20 mg PO QAM 03/14/18 [History] Albuterol Neb [Proventil Neb] 2.5 mg IH Q8H PRN 06/23/18 [History] Albuterol Sulfate [Ventolin Hfa] 2 puff IH Q4-6H PRN 06/23/18 [History] Metoprolol Succinate [Toprol Xl] 100 mg PO DAILY 06/23/18 [History] Multivitamin [Daily Multiple Vitamin] 1 tab PO DAILY 06/23/18 [History] Lisinopril [Zestril] 2.5 mg PO DAILY #30 tablet 06/27/18 [Rx] Aspirin [Lo-Dose Aspirin EC] 81 mg PO DAILY 09/03/18 [History] Furosemide [Lasix] 40 mg PO DAILY 09/03/18 [History] Potassium Chloride [K-Tab ER] 20 meq PO Q48H 09/03/18 [History] Allergy/AdvReac Type Severity Reaction Status Date / Time aspirin [ASA] AdvReac Gastrointestinal Verified 09/03/18 13:34 Upset All Systems PM: A 10-system review of systems was performed and is negative for pertinent findings except as documented above in the HPI. - Constitutional Vitals: Temp Pulse Resp BP Pulse Ox 97.5 F L 100 19 121/79 99 09/03/18 13:32 09/03/18 15:09 09/03/18 15:09 09/03/18 15:09 09/03/18 15:09 Exam: General appearance: Patient is on BiPAP. Family at bedside. Head exam: Atraumatic Eye exam: EOMI, PERRLA. watr bag under eyes ENT exam: Moist oral mucosa Neck nontender, supple Respiratory exam: Decreased breath sound but bilateral fine crackles and scattered expiratory wheezing bilateral. Cardiovascular exam: Tachycardia with regular rhythm. no systolic murmur Abdominal exam: Soft, nontender, nondistended, positive bowel sounds Extremities exam: No calf tenderness, +2 pedal edema Present: Skin-no rash, warm, dry, intact Neurological exam: Alert, awake, oriented 3, CN II-XII intact, no focal deficits. Internal Med - H&P Results - Labs CBC & Chem 7: 09/03/18 13:47 09/03/18 13:47 Labs: Short CBC 09/03/18 Range/Units 13:47 WBC 7.0 (4.3-11.1) K/mcL Hgb 9.7 L (12.9-16.9) g/dL Hct 35.3 L (37.5-50.1) % Plt Count 173 (140-400) K/mcL Neutrophils # 5.4 (1.6-8.9) K/mcL BMP 09/03/18 13:47 Sodium 140 Potassium 3.8 Chloride 102 Carbon Dioxide 28 BUN 15 Creatinine 1.00 Glucose 134 H Calcium 9.5 Cardiac Enzymes 09/03/18 Range/Units 13:47 Troponin I 0.03 (< 0.04) ng/mL Liver Function 09/03/18 Range/Units 13:47 Total Bilirubin 1.7 H (0.3-1.0) mg/dL Direct Bilirubin 0.8 H (0.0-0.2) mg/dL AST 16 (13-39) Units/L ALT 9 (7-52) Units/L Alkaline Phosphatase 69 (34-104) Units/L Albumin 3.9 (3.5-5.7) g/dL - Impressions ITS Impressions Chest X-Ray 09/03/18 13:39 IMPRESSION: Pacemaker. Cardiomegaly. Atelectasis or infiltrates in the lung bases with bilateral pleural effusions. Follow up to resolution is suggested. D/ / 09/03/2018 14:33:32 Leta Stewart MD / pool Interpreting Provider: Leta Stewart MD - Assessment and Plan (1) SOB (shortness of breath) Current Visit: Yes Status: Acute Assessment and plan: Progressively worse. Multiple differential cardio and pulmonary etiology. Possible CHF exacerbation as patient has a lung, pedal edema and raise BNP with underlying low EF and severe cardiomyopathy. Possible COPD exacerbation as patient has wheezing bilateral. Possible pneumonia with shortness of breath, productive cough, chest x-ray with questionable infiltrate bilateral. Continue IV antibiotic, IV Lasix, IV Solu-Medrol, oxygen supplementation, DuoNeb . please see below as mentioned. will admit pt in 2N. (2) CHF exacerbation Current Visit: Yes Status: Acute Assessment and plan: Most likely based on clinical presentation short of breath cough pedal edema raised BNP. Lasix 40 mg IV given in the ER. Lasix 40 mg IV twice a day, a strict I&O's and daily weight. Will consult cardiology if needed Chest x-ray IMPRESSION: Pacemaker. Cardiomegaly. Atelectasis or infiltrates in the lung bases with bilateral pleural effusions. Follow up to resolution is suggested. (3) Pneumonia Current Visit: Yes Status: Acute Assessment and plan: Clinically patient has cough with whitish sputum, shortness of breath, crackles, chest x-ray with possible infiltrate-possible community-acquired pneumonia. Rocephin and Zithromax as started in the ER. sputum culture ordered Respiratory panel ordered Urine antigen ordered Qualifiers: Pneumonia type: due to unspecified organism Laterality: unspecified laterality Lung location: unspecified part of lung Qualified Code(s): J18.9 - Pneumonia, unspecified organism (4) COPD (chronic obstructive pulmonary disease) Current Visit: No Status: Chronic Assessment and plan: Acute exacerbation as patient having wheezing. IV Solu-Medrol, DuoNeb, s pirometry, oxygen supplementation. Zithromax already started. Educated about stopping tobacco. At present patient is on BiPAP. ABG stat ordered. Qualifiers: COPD type: emphysema Emphysema type: unspecified Qualified Code(s): J43.9 - Emphysema, unspecified (5) Lactic acidosis Current Visit: Yes Status: Acute Assessment and plan: Increased lactic acid but patient does not have fever normal white count. Could be sepsis or metabolic acidosis with underlying of problem. Blood culture drawn in the ER, IV to oral antibiotic is started in the ER. No fluid bolus given in the ER with the concern of CHF exacerbation more likely and will make patient worse clinically. Repeat lactic acid ordered. if worsening lactic acid then will consider fluid bolus while monitoring him closely to follow sepsis protocol (6) CAD (coronary artery disease) Current Visit: No Status: Chronic Assessment and plan: Status post CABG. no active chest pain. Troponin negative. Following cardiology at [facility]. Continue home medicine Qualifiers: Coronary Disease-Associated Artery/Lesion type: bypass graft [place] vs. transplanted heart: [place] heart Associated angina: without angina Qualified Code(s): I25.810 - Atherosclerosis of coronary artery bypass graft(s) without angina pectoris (7) Hypertension Current Visit: No Status: Chronic Assessment and plan: Well controlled. Continue to monitor. Qualifiers: Hypertension type: essential hypertension Qualified Code(s): I10 - Essential (primary) hypertension (8) Ischemic cardiomyopathy Current Visit: No Status: Chronic Assessment and plan: Severe EF 25% and last echo. status post AICD - checked the device Metronic in ER - found appropriate. pt was taking xarelto earlier then changed to Coumadin but now not taking any anticoagulation due to unknown reason. Continue home meds including aspirin, beta mikayla. Fasting lipid profile ordered (9) Tobacco abuse Current Visit: No Status: Chronic Assessment and plan: smoking cessation education (10) Generalized weakness Current Visit: Yes Status: Acute Assessment and plan: Most likely due to above. PT OT will be consulted inpatient more a stable. Consult social media marketing manager for discharge plan (11) DVT prophylaxis Current Visit: No Status: Acute Assessment and plan: Subcutaneous heparin - Time Spent With Patient Total time spent is greater than 50% in coordination of care (as documented) at patient's floor/unit and/or counseling patient:
--- NOTE | 2018-09-03 15:54 | Emergency Department Note ---
Disposition Clinical Impression: CHF exacerbation Qualifiers: Heart failure type: unspecified Qualified Code(s): I50.9 - Heart failure, unspecified Disposition: Admitted As Inpatient Condition: Good Referrals: Jose Daniel Acosta DO [Primary Care Provider] - Forms: ED Satisfaction Letter Time of Disposition: 15:54 General Adult HPI - General Chief complaint: ED Shortness of Breath/Dyspnea Stated complaint: EMELIA Time Seen by Provider: 09/03/18 13:31 Source: patient, family Mode of arrival: ambulatory Limitations: no limitations - History of Present Illness Pain Scale: 0 - Related Data Home Medications Medication Instructions Recorded Confirmed Omeprazole [PriLOSEC] 20 mg PO BID 03/14/18 06/22/18 Rivaroxaban [Xarelto] 20 mg PO DAILY 03/14/18 06/23/18 Albuterol Neb [Proventil Neb] 2.5 mg IH Q8H PRN 06/23/18 06/23/18 Albuterol Sulfate [Ventolin Hfa] 2 puff IH Q4-6H PRN 06/23/18 06/23/18 Metoprolol Succinate [Toprol Xl] 100 mg PO DAILY 06/23/18 06/23/18 Multivitamin [Daily Multiple 1 tab PO DAILY 06/23/18 06/23/18 Vitamin] Previous Rx's Medication Instructions Recorded Potassium Chloride [K-Tab ER] 20 meq PO DAILY #30 tablet.er 03/15/18 Doxycycline 100 mg PO BID #15 capsule 06/27/18 Ferrous Sulfate 325 mg PO DAILY #30 tablet 06/27/18 Furosemide [Lasix] 20 mg PO BID #60 tablet 06/27/18 Lisinopril [Zestril] 2.5 mg PO DAILY #30 tablet 06/27/18 Metoprolol XL (24 HR) Succ [Toprol 150 mg PO QAM #90 tab.er.24h 06/27/18 Xl] Warfarin [Coumadin] 4 mg PO 1800 #15 tablet 06/27/18 Allergies Allergy/AdvReac Type Severity Reaction Status Date / Time aspirin [ASA] AdvReac Gastrointestinal Verified 09/03/18 13:34 Upset Constitutional: Reports: weight change. Denies: fever Eyes: Reports: as per HPI ENT ED: Reports: as per HPI Cardiovascular: Reports: dyspnea on exertion. Denies: chest pain Respiratory: Reports: cough, dyspnea Gastrointestinal: Reports: nausea. Denies: abdominal pain Genitourinary: Reports: as per HPI Musculoskeletal: Reports: as per HPI Integumentary: Reports: as per HPI Neurological: Reports: as per HPI Psychiatric: Reports: as per HPI Endocrine: Reports: as per HPI Hematological/Lymphatic: Reports: as per HPI Allergic/Immunologic: Reports: as per HPI Past Medical History - Past Medical History Medical history: Reports: CHF, COPD, coronary artery disease, GERD, hyperlipidemia, hypertension, myocardial infarction Surgical history: Reports: angioplasty/stent, coronary bypass (CABG) Psychiatric history: Reports: no psych history - Social History Smoking Status: Current every day smoker Smokeless Tobacco Status: No Alcohol use: Reports: none Drug use: Reports: none Physical Exam - General Limitations: no limitations General appearance: alert, in no apparent distress Course Vital Signs Temperature 97.5 F L 09/03/18 13:32 Pulse Rate 125 09/03/18 13:32 Respiratory Rate 25 09/03/18 13:32 Blood Pressure 143/79 09/03/18 13:32 O2 Sat by Pulse Oximetry 98 09/03/18 13:32 Temperature 97.5 F L 09/03/18 13:32 Pulse Rate 100 09/03/18 15:09 Respiratory Rate 19 09/03/18 15:09 Blood Pressure 121/79 09/03/18 15:09 O2 Sat by Pulse Oximetry 99 09/03/18 15:09 Oxygen Delivery Oxygen Delivery Room Air Medical Decision Making - Lab Data Result diagrams: 09/03/18 13:47 09/03/18 13:47 Lab Results 09/03/18 09/03/18 09/03/18 Range/Units 13:47 13:47 13:47 WBC 7.0 (4.3-11.1) K/mcL RBC 4.80 (4.19-5.50) M/mcL Hgb 9.7 L (12.9-16.9) g/dL Hct 35.3 L (37.5-50.1) % MCV 73.5 L (83.0-100.0) fL MCH 20.2 L (28.0-33.3) pg MCHC 27.5 L (31.6-35.5) g/dL RDW 22.1 H (11.5-14.5) % Plt Count 173 (140-400) K/mcL MPV TNP Immature Gran % 0.4 (0-4) % Seg Neutrophils % 77.3 % Lymphocytes % 8.6 % Monocytes % 11.4 % Eosinophils % 1.0 % Basophils % 1.3 % Neutrophils # 5.4 (1.6-8.9) K/mcL Lymphocytes # 0.6 (0.6-4.6) K/mcL Monocytes # 0.8 (0.0-1.3) K/mcL Eosinophils # 0.1 (0.0-0.6) K/mcL Basophils # 0.1 (0.0-0.2) K/mcL Platelet Estimate Normal (Normal) Hypochromasia Present A (Not Present) Anisocytosis 2+ A (Not Present) Microcytosis Present A (Not Present) Sodium 140 (136-145) mEq/L Potassium 3.8 (3.5-5.1) mEq/L Chloride 102 (98-107) mEq/L Carbon Dioxide 28 (23-29) mEq/L BUN 15 (8-23) mg/dL Creatinine 1.00 (0.70-1.30) mg/dL Est GFR ( Amer) > 60 (> 60) Est GFR (Non-Af Amer) > 60 (> 60) BUN/Creatinine Ratio 15 (6-26) Glucose 134 H (70-105) mg/dL Calculated Osmolality 293 (280-300) Lactic Acid 2.6 H (0.5-2.2) mmol/L Calcium 9.5 (8.6-10.3) mg/dL Magnesium 1.7 (1.6-2.6) mg/dL Total Bilirubin 1.7 H (0.3-1.0) mg/dL Direct Bilirubin 0.8 H (0.0-0.2) mg/dL Indirect Bilirubin 0.9 (0.0-1.2) mg/dL AST 16 (13-39) Units/L ALT 9 (7-52) Units/L Alkaline Phosphatase 69 (34-104) Units/L Troponin I 0.03 (< 0.04) ng/mL Serum Total Protein 7.1 (6.4-8.9) g/dL Albumin 3.9 (3.5-5.7) g/dL Globulin 3.2 (2.4-3.5) g/dL Albumin/Globulin Ratio 1.2 (1.1-2.2) Attestation Statement - Attestation Attestation: I examined this patient and my medical decision-making was reviewed with the Resident Physician. I agree with the documented findings, disposition and treatment plan as described except to the extent set forth below. 73 year old male presents to the ED with complaitns of difficulty in breathing and otherwise appers to be fluid overloaded and has a a history of CHF and tachypniec at bedside. Bipap has been placed and we will rule out pneumonia. Finesse treated with lasix and is doing much better on bipap from a respirator [facility] and states that he also feels better. Finesse will be admitted to medicine
[2018-09-03 15:59] LABS: Bilirubin,Urine Negative (Negative); Blood,Urine Negative (Negative); Clarity,Urine Clear (Clear); Color,Urine Yellow (Yellow); Glucose,Urine (UA) Normal (Normal); Ketones,Urine Negative (Negative); Leukocyte Esterase,Urine Negative (Negative); Nitrite,Urine Negative (Negative); PH,Urine 7.5 pH Units (5.0-8.0); Protein,Urine Trace mg/dL (Neg-Trace); Specific Gravity,Urine < 1.005 (1.010-1.025)
[2018-09-03] MEDS ORDERED: Acetaminophen 325 MG TABLET PO PRN (16:14)
[2018-09-03] MEDS ORDERED: Ondansetron 4 MG/2 ML VIAL IVP PRN (16:14)
[2018-09-03] MEDS ORDERED: Naloxone 0.4 MG/ML INJ IVP PRN (16:14)
[2018-09-03] MEDS ORDERED: Dextrose Gel 15 GM/37.5 ML TUBE PO PRN ×2 (16:37)
[2018-09-03] MEDS ORDERED: D5% in Water 1,000 ML IVC PRN (16:37)
[2018-09-03] MEDS ORDERED: *HR* Dextrose 50 % in Water (Syg) 50 ML SYRINGE IVP PRN (16:37)
[2018-09-03 17:05] LABS: VBG HCO3 30 mEq/L (21-27); VBG PCO2 40 mmHg (41-51); VBG PH 7.48 pH Units (7.32-7.42); VBG PO2 117 mmHg (25-50)
[2018-09-03 17:41] LABS: Estimated Average Glucose 143 mg/dl; Hemoglobin A1C 6.6 %
[2018-09-03 17:43] LABS: INR 1.4; Prothrombin Time 15.3 Seconds (9.4-12.1)
[2018-09-03] MEDS: Ipratropium/Albuterol Neb 3 ML IH SCH ×2 (18:35→21:26)
[2018-09-03] MEDS ORDERED: Furosemide 40 MG in 0.9 % Sodium Chloride 50 ML IV SCH (21:00)
[2018-09-03] MEDS: Furosemide 40 MG/4 ML VIAL IVP SCH (21:44)
[2018-09-03] MEDS: cefTRIAXone 1,000 MG in Water for inj. (sterile) 20 ML 20 ML IVP SCH (21:45)
[2018-09-03] MEDS: *HR* Heparin 5,000 UNIT/ML VIAL SQ SCH (21:47)
[2018-09-03] MEDS: MethylPREDNISolone 40 MG/ML VIAL IVP SCH (21:47)
[2018-09-04] MEDS: MethylPREDNISolone 40 MG/ML VIAL IVP SCH ×3 (00:16→13:09)
[2018-09-04] MEDS: Ipratropium/Albuterol Neb 3 ML IH SCH ×4 (04:11→21:35)
--- NOTE | 2018-09-04 04:22 | Event Note ---
Date of Encounter: 09/04/18 Time of Encounter: 00:07 Alerted by patient's nurse that patient's troponin was now 0.80, up from 0.20 previously. Patient reported shortness of breath but no chest pain. Patient admitted with CHF exacerbation complicated by COPD and pneumonia. Follow-up troponin ordered for 6 hours later. Discussed patient with Dr. Bain before to determine need for heparin drip, however recommendation was continue monitoring due to troponin most likely being elevated from demand ischemia. Nurse instructed to continue monitoring this pt. closely and keep me informed of any new or adverse changes.
[2018-09-04] MEDS: *HR* Heparin 5,000 UNIT/ML VIAL SQ SCH ×3 (06:05→21:42)
[2018-09-04] MEDS: Aspirin Enteric Coated 81 MG Tablet PO SCH (08:06)
[2018-09-04] MEDS: Metoprolol XL (24 HR) Succ 50 MG TAB.ER.24H PO SCH (08:06)
[2018-09-04] MEDS: Furosemide 40 MG/4 ML VIAL IVP SCH ×2 (08:06→16:21)
[2018-09-04 08:18] LABS: Hematocrit 34.6 % (37.5-50.1); Hemoglobin 9.5 g/dL (12.9-16.9); Lymphocytes % 3.8 %; Mean Corpuscular HGB Conc 27.5 g/dL (31.6-35.5); Monocytes % 1.2 %
[2018-09-04 08:19] LABS: Basophils % 0.3 %; Immature Granulocytes % 0.3 % (0-4); Lymphocytes # 0.2 K/mcL (0.6-4.6); Mean Corpuscular Hemoglobin 20.1 pg (28.0-33.3); Mean Corpuscular Volume 73.2 fL (83.0-100.0); Monocytes # 0.1 K/mcL (0.0-1.3); Platelet Count 171 K/mcL (140-400); Red Blood Count 4.73 M/mcL (4.19-5.50); Red Cell Distribution Width 21.8 % (11.5-14.5); Segmented Neutrophils % 94.4 %
[2018-09-04 08:23] LABS: Neutrophils # 5.5 K/mcL (1.6-8.9)
[2018-09-04 08:40] LABS: BUN/Creatinine Ratio 18 (6-26); Blood Urea Nitrogen 20 mg/dL (8-23); Calcium 9.1 mg/dL (8.6-10.3); Carbon Dioxide 26 mEq/L (23-29); Chloride 99 mEq/L (98-107); Chol/HDL Ratio 2.9 (0-4.9); Cholesterol 97 mg/dL (< 200); Glucose 164 mg/dL (70-105); HDL Cholesterol 34 mg/dL (40-59); LDL Cholesterol,Calculated 54 mg/dL (0-99); Osmolality,Calculated 294 (280-300); Potassium 3.9 mEq/L (3.5-5.1); Sodium 139 mEq/L (136-145); Triglycerides 46 mg/dL (< 150); eGFR For Non-African Americans > 60 (> 60)
[2018-09-04 08:57] LABS: Anisocytosis 2+ (Not Present); Hypochromasia Present (Not Present)
[2018-09-04 08:58] LABS: Microcytosis Present (Not Present); Platelet Estimate Normal (Normal); Polychromasia 1+ (Not Present)
[2018-09-04] MEDS: Insulin LISPRO 300 UNITS/3 ML VIAL SQ SCH ×3 (10:04→17:29)
--- NOTE | 2018-09-04 10:48 | Internal Med Progress Note ---
Hospitalist Progress Note - Encounter Date of Encounter: 09/04/18 Time of Encounter: 10:42 - Subjective Interval History: Patient seen and examined this morning at bedside. No acute overnight events. Breathing mild improvement. Denies any chest pain. Denies any nausea vomiting or chills or diarrhea. Has noticed some increase in urination but not si gnificantly. - Exam Vitals: Temp Pulse Resp BP Pulse Ox 97.9 F 101 18 127/97 95 09/04/18 06:36 09/04/18 06:36 09/04/18 06:36 09/04/18 06:36 09/04/18 06:36 Exam: Exam General: In no acute distress. sitting on chair Respiratory exam: no accessory muscle use. crackles at base b/l Cardiovascular exam: RRR, +S1, +S2. no murmur, gallop, rubs. GI/Abdominal exam: Non-tender, Non-distended, normal bowel sounds, soft, no peritoneal signs. Extremities exam: 2+ pedal edema, no calf tenderness Neurological exam: CN II-XII intact, AO X3, no focal deficits. Skin exam: multiple ecchymosis, chronic stasis dermatitis b/l LE. - Assessment and Plan (1) Hypertension Current Visit: No Status: Chronic (2) Tobacco abuse Current Visit: No Status: Chronic (3) DVT prophylaxis Current Visit: No Status: Acute (4) COPD (chronic obstructive pulmonary disease) Current Visit: No Status: Chronic (5) CAD (coronary artery disease) Current Visit: No Status: Chronic (6) Ischemic cardiomyopathy Current Visit: No Status: Chronic (7) CHF exacerbation Current Visit: Yes Status: Acute (8) Pneumonia Current Visit: Yes Status: Acute (9) Generalized weakness Current Visit: Yes Status: Acute (10) Lactic acidosis Current Visit: Yes Status: Acute (11) SOB (shortness of breath) Current Visit: Yes Status: Acute - Summary of Assessment and Plan Summary of Assessment and Plan: Assessment Acute acute on chronic systolic chf COPD exacerbation Possible pneumonia Lactic acidosis DVT prophylaxis Chronic severe cardiomyopathy-ischemic Acquisitions Librarian afib AICD COPD HTN HLD GERD CAD tobacco abuse Plan - c/w lasix IV 40 BID for CHF exacerbation. Bipap overnight prn - c/w empiric antibiotics for now. sputum culture, Urine antigen and RIP pending. f/u lactic acid. Tachycardia resolved - c/w bronchodilators schedule, taper steroids - c/e home lisinopril, aspirin and betablocker. Will add statin for CAD and spironolactone for better diuresis. Monitor renal function carefully. - Patient not on Anticoagulation as he stopped it with epistaxis and multiple bleeding through skin scratches. Will obtain limited ECHO with contrast for LV thrombus. - counselled on smoking cessation. - heparin for DVt prophylaxis - Time Spent with Patient Total time spent is greater than 50% in coordination of care (as documented) at patient's floor/unit and/or counseling patient: Internal Medicine: Result - Labs CBC & Chem 7: 09/04/18 07:14 09/04/18 07:14 Labs: Short CBC 09/03/18 09/04/18 Range/Units 13:47 07:14 WBC 7.0 5.8 (4.3-11.1) K/mcL Hgb 9.7 L 9.5 L (12.9-16.9) g/dL Hct 35.3 L 34.6 L (37.5-50.1) % Plt Count 173 171 (140-400) K/mcL Neutrophils # 5.4 5.5 (1.6-8.9) K/mcL BMP 09/03/18 09/04/18 13:47 07:14 Sodium 140 139 Potassium 3.8 3.9 Chloride 102 99 Carbon Dioxide 28 26 BUN 15 20 Creatinine 1.00 1.10 Glucose 134 H 164 H Calcium 9.5 9.1 Cardiac Enzymes 09/03/18 09/03/18 09/03/18 Range/Units 13:47 17:12 23:06 Troponin I 0.03 0.20 H* 0.80 H* (< 0.04) ng/mL 09/04/18 Range/Units 07:14 Troponin I 0.56 H* (< 0.04) ng/mL Liver Function 09/03/18 Range/Units 13:47 Total Bilirubin 1.7 H (0.3-1.0) mg/dL Direct Bilirubin 0.8 H (0.0-0.2) mg/dL AST 16 (13-39) Units/L ALT 9 (7-52) Units/L Alkaline Phosphatase 69 (34-104) Units/L Albumin 3.9 (3.5-5.7) g/dL Urine 09/03/18 Range/Units 15:01 Urine Color Yellow (Yellow) Urine Clarity Clear (Clear) Urine pH 7.5 (5.0-8.0) pH Units Ur Specific [place] < 1.005 L (1.010-1.025) Urine Protein Trace (Neg-Trace) mg/dL Urine Glucose (UA) Normal (Normal) mg/dL - ABG Interpretation ABG results: PT/INR, D-dimer PT 15.3 Seconds (9.4-12.1) H 09/03/18 13:46 - Impressions Impressions Chest X-Ray 09/03/18 13:39 IMPRESSION: Pacemaker. Cardiomegaly. Atelectasis or infiltrates in the lung bases with bilateral pleural effusions. Follow up to resolution is suggested. D/ / 09/03/2018 14:33:32 Leta Stewart MD / pool Interpreting Provider: Leta Stewart MD Consult Discharge Plan - Plan Referrals: Jose Daniel Acosta DO [Primary Care Provider] - (1) Hypertension Qualifiers: Hypertension type: essential hypertension Qualified Code(s): I10 - Essential (primary) hypertension (4) COPD (chronic obstructive pulmonary disease) Qualifiers: COPD type: emphysema Emphysema type: unspecified Qualified Code(s): J43.9 - Emphysema, unspecified (5) CAD (coronary artery disease) Qualifiers: Coronary Disease-Associated Artery/Lesion type: bypass graft [place] vs. transplanted heart: [place] heart Associated angina: without angina Qualified Code(s): I25.810 - Atherosclerosis of coronary artery bypass graft(s) without angina pectoris (7) CHF exacerbation Qualifiers: Heart failure type: systolic Qualified Code(s): I50.23 - Acute on chronic systolic (congestive) heart failure (8) Pneumonia Qualifiers: Pneumonia type: due to unspecified organism Laterality: unspecified la terality Lung location: unspecified part of lung Qualified Code(s): J18.9 - Pneumonia, unspecified organism
[2018-09-04] MEDS: Azithromycin 500 MG in D5% in Water 250 ML IVPB SCH (13:10)
[2018-09-04] MEDS ORDERED: Perflutren Lipid Microsphere 1.3 ML in 0.9 % Sodium Chloride 8.7 ML IVP ONE (14:08)
[2018-09-04] MEDS: Spironolactone 25 MG TABLET PO SCH (16:21)
[2018-09-04] MEDS: cefTRIAXone 1,000 MG in Water for inj. (sterile) 20 ML 20 ML IVP SCH (16:22)
[2018-09-05] MEDS: Ipratropium/Albuterol Neb 3 ML IH SCH ×4 (04:01→22:05)
[2018-09-05] MEDS: *HR* Heparin 5,000 UNIT/ML VIAL SQ SCH ×3 (04:38→21:10)
--- NOTE | 2018-09-05 06:27 | Electrocardiograph Report ---
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
[2018-09-05 08:17] LABS: BUN/Creatinine Ratio 25 (6-26); Blood Urea Nitrogen 26 mg/dL (8-23); Calcium 9.1 mg/dL (8.6-10.3); Carbon Dioxide 32 mEq/L (23-29); Chloride 101 mEq/L (98-107); Glucose 150 mg/dL (70-105); Osmolality,Calculated 296 (280-300); Sodium 139 mEq/L (136-145); eGFR For Non-African Americans > 60 (> 60)
[2018-09-05] MEDS: Furosemide 40 MG/4 ML VIAL IVP SCH ×2 (08:49→16:36)
[2018-09-05] MEDS: Aspirin Enteric Coated 81 MG Tablet PO SCH (08:49)
[2018-09-05] MEDS: Metoprolol XL (24 HR) Succ 50 MG TAB.ER.24H PO SCH (08:49)
[2018-09-05] MEDS: Spironolactone 25 MG TABLET PO SCH (08:49)
[2018-09-05] MEDS: MethylPREDNISolone 40 MG/ML VIAL IVP SCH (08:49)
[2018-09-05] MEDS: Insulin LISPRO 300 UNITS/3 ML VIAL SQ SCH ×3 (08:55→16:39)
[2018-09-05] MEDS: Azithromycin 500 MG in D5% in Water 250 ML IVPB SCH (11:30)
--- NOTE | 2018-09-05 11:37 | Internal Med Progress Note ---
Hospitalist Progress Note - Encounter Date of Encounter: 09/05/18 Time of Encounter: 10:37 - Subjective Interval History: Patient seen and examined this morning at bedside. No acute overnight events. Not significant negative balance achieved yet through urine output. Patient does not think she has been urinating more. Denies any fevers chills nausea vomiting or diarrhea. - Exam Vitals: Temp Pulse Resp BP Pulse Ox 97.5 F L 88 16 118/80 94 09/05/18 07:37 09/05/18 07:37 09/05/18 10:23 09/05/18 07:37 09/05/18 10:23 Exam: Exam General: In no acute distress. Respiratory exam: no accessory muscle use. crackles at base b/l Cardiovascular exam: RRR, +S1, +S2. no murmur, gallop, rubs. GI/Abdominal exam: Non-tender, Non-distended, normal bowel sounds, soft, no peritoneal signs. Has abdominal wall edema as well. Extremities exam: 2+ pedal edema, no calf tenderness Neurological exam: CN II-XII intact, AO X3, no focal deficits. Skin exam: multiple ecchymosis, chronic stasis dermatitis b/l LE. - Assessment and Plan (1) Hypertension Current Visit: No Status: Chronic (2) Tobacco abuse Current Visit: No Status: Chronic (3) DVT prophylaxis Current Visit: No Status: Acute (4) COPD (chronic obstructive pulmonary disease) Current Visit: No Status: Chronic (5) CAD (coronary artery disease) Current Visit: No Status: Chronic (6) Ischemic cardiomyopathy Current Visit: No Status: Chronic (7) CHF exacerbation Current Visit: Yes Status: Acute (8) Pneumonia Current Visit: Yes Status: Acute (9) Generalized weakness Current Visit: Yes Status: Acute (10) Lactic acidosis Current Visit: Yes Status: Acute (11) SOB (shortness of breath) Current Visit: Yes Status: Acute - Summary of Assessment and Plan Summary of Assessment and Plan: Assessment Acute acute on chronic systolic chf COPD exacerbation Possible pneumonia Lactic acidosis- resolved elevated troponin Chronic anemia DVT prophylaxis Chronic severe cardiomyopathy-ischemic [employer] afib AICD COPD HTN HLD GERD CAD tobacco abuse Plan - c/w lasix IV 40 BID for CHF exacerbation. Bipap overnight prn - c/w empiric antibiotics for now. sputum culture, Urine antigen and RIP pending. lactic acid normalized. Tachycardia resolved. Blood culture NGTD. - c/w bronchodilators schedule, steroids - c/e home lisinopril, aspirin and betablocker. statin added for CAD and spironolactone added for better diuresis and cardiomyopathy. Monitor renal function carefully. Not significant urine output. Will dose with albumin to allow better diuresis. - Patient not on Anticoagulation as he stopped it with epistaxis and multiple bleeding through skin scratches. He does not want to take any anticoagulation after discussing the risks of stroke. ECHO with ef of 30-35% which is slightly better, no LV thrombus, sev pul HTN, Mod LVH, mod rv hypokinesis. - Hbs stable. Monitor for now. - heparin for DVt prophylaxis - Time Spent with Patient Total time spent is greater than 50% in coordination of care (as documented) at patient's floor/unit and/or counseling patient: Internal Medicine: Result - Labs CBC & Chem 7: 09/04/18 07:14 09/05/18 07:43 Labs: BMP 09/05/18 07:43 Sodium 139 Potassium 4.0 Chloride 101 Carbon Dioxide 32 H BUN 26 H Creatinine 1.06 Glucose 150 H Calcium 9.1 - ABG Interpretation ABG results: PT/INR, D-dimer PT 15.3 Seconds (9.4-12.1) H 09/03/18 13:46 - Impressions Impressions Echocardiogram 09/04/18 16:21 Impressions: LVEF 30-35%. Severe global left ventricular systolic dysfunction. Moderate concentric left ventricular hypertrophy. Moderate right ventricular hypokinesis. Moderate tricuspid regurgitation. Severe pulmonary hypertension.Estimated RVSP is 67 mmHg. A device lead was visualized in the right atrium and right ventricle. Left Ventricular Wall Motion: Rest Echo Findings The apex, apical inferior, mid inferior, basal inferior, apical anterior, mid anterior, basal anterior, apical septal, mid inferior septal, basal inferior septal, apical lateral, mid anterior lateral, basal anterior lateral, mid anterior septal, mid inferior lateral, basal anterior septal and basal inferior lateral deras were hypokinetic. Findings: Study Quality * Technically sub-optimal due to poor echocardiographic windows. ECG Findings * Paced rhythm. Left Ventricle * LVEF 30-35%.Severe global left ventricular systolic dysfunction. * Moderate concentric left ventricular hypertrophy. * * Indeterminate diastolic function. * There is no LV thrombus. * Definity echo contrast was used. * Atypical septal motion consistent with paced rhythm. * Mildly dilated left ventricle. Right Ventricle * Moderate right ventricular hypokinesis. * Right ventricular size not well evaluated. Aortic Valve * Trileaflet aortic valve. * Moderately sclerotic aortic valve leaflets. * No aortic regurgitation. * No aortic stenosis. Mitral Valve * No mitral stenosis. * Mild mitral regurgitation. * Mitral valve not well visualized. Tricuspid Valve * Moderate tricuspid regurgitation. * * Estimated RA pressure is 20 mmHg. * Severe pulmonary hypertension.Estimated RVSP is 67 mmHg. Pulmonic Valve * Trace pulmonic regurgitation. Aorta * Normally sized aortic root. Pericardium * There is a trivial pericardial effusion present. * There is no echocardiographic evidence of tamponade. IVC * The IVC is dilated. Pleural Effusion * Small pleural effusion. Device lead * A device lead was visualized in the right atrium and right ventricle. Pulmonary Artery * Pulmonary artery not well visualized. Left Atrium * Moderately dilated left atrium. Right Atrium * Moderately dilated right atrium. Consult Discharge Plan - Plan Referrals: Jose Daniel Acosta DO [Primary Care Provider] - (1) Hypertension Qualifiers: Hypertension type: essential hypertension Qualified Code(s): I10 - Essential (primary) hypertension (4) COPD (chronic obstructive pulmonary disease) Qualifiers: COPD type: emphysema Emphysema type: unspecified Qualified Code(s): J43.9 - Emphysema, unspecified (5) CAD (coronary artery disease) Qualifiers: Coronary Disease-Associated Artery/Lesion type: bypass graft [place] vs. transplanted heart: [place] heart Associated angina: without angina Qualified Code(s): I25.810 - Atherosclerosis of coronary artery bypass graft(s) without angina pectoris (8) Pneumonia Qualifiers: Pneumonia type: due to unspecified organism Laterality: unspecified laterality Lung location: unspecified part of lung Qualified Code(s): J18.9 - Pneumonia, unspecified organism
[2018-09-05 14:49] LABS: Adenovirus Not Detected (Not Detect); Bordetella Pertussis Not Detected (Not Detect); Chlamydophila pneumoniae Not Detected (Not Detect); Coronavirus 229E Not Detected (Not Detect); Coronavirus HKU1 Not Detected (Not Detect); Coronavirus NL63 Not Detected (Not Detect); Coronavirus OC43 Not Detected (Not Detect); Human Metapneumovirus Not Detected (Not Detect); Human Rhinovirus/Enterovirus Not Detected (Not Detect); Influenza A Subtype 2009 H1 Not Detected (Not Detect); Influenza A Untypeable Not Detected (Not Detect); Influenza B Not Detected (Not Detect); Mycoplasma pneumoniae Not Detected (Not Detect); Parainfluenza Virus 1 Not Detected (Not Detect); Parainfluenza Virus 2 Not Detected (Not Detect); Parainfluenza Virus 3 Not Detected (Not Detect); Parainfluenza Virus 4 Not Detected (Not Detect); Respiratory Syncytial Virus Not Detected (Not Detect)
[2018-09-05] MEDS: Albumin 25% 25gram/100mL 25 GM/100 ML IV.SOLN IVPB SCH (16:36)
[2018-09-06] MEDS: Albumin 25% 25gram/100mL 25 GM/100 ML IV.SOLN IVPB SCH ×3 (00:12→16:41)
[2018-09-06] MEDS: Ipratropium/Albuterol Neb 3 ML IH SCH ×4 (04:36→22:09)
[2018-09-06] MEDS: *HR* Heparin 5,000 UNIT/ML VIAL SQ SCH ×3 (05:23→21:26)
[2018-09-06] MEDS: Insulin LISPRO 300 UNITS/3 ML VIAL SQ SCH ×3 (08:10→16:43)
[2018-09-06] MEDS: Metoprolol XL (24 HR) Succ 50 MG TAB.ER.24H PO SCH (08:14)
[2018-09-06] MEDS: Furosemide 40 MG/4 ML VIAL IVP SCH (08:14)
[2018-09-06] MEDS: MethylPREDNISolone 40 MG/ML VIAL IVP SCH (08:14)
[2018-09-06] MEDS: Spironolactone 25 MG TABLET PO SCH (08:14)
[2018-09-06] MEDS: Aspirin Enteric Coated 81 MG Tablet PO SCH (08:15)
[2018-09-06 10:24] LABS: BUN/Creatinine Ratio 27 (6-26); Blood Urea Nitrogen 26 mg/dL (8-23); Calcium 9.6 mg/dL (8.6-10.3); Carbon Dioxide 30 mEq/L (23-29); Chloride 99 mEq/L (98-107); Glucose 136 mg/dL (70-105); Osmolality,Calculated 299 (280-300); Potassium 3.7 mEq/L (3.5-5.1); Sodium 141 mEq/L (136-145); eGFR For Non-African Americans > 60 (> 60)
--- NOTE | 2018-09-06 12:38 | Internal Med Progress Note ---
Hospitalist Progress Note - Encounter Date of Encounter: 09/06/18 Time of Encounter: 09:38 - Subjective Interval History: Examined this morning at bedside. No acute overnight events. Denies fever chills nausea vomiting. Denies any chest pain. Breathing improved. Denies any diarrhea. - Exam Vitals: Temp Pulse Resp BP Pulse Ox 97.6 F 66 16 114/74 96 09/06/18 12:20 09/06/18 12:20 09/06/18 12:20 09/06/18 12:20 09/06/18 12:20 Exam: Exam General: In no acute distress. Respiratory exam: no accessory muscle use. crackles at base b/l as well as rhonchi Cardiovascular exam: RRR, +S1, +S2. no murmur, gallop, rubs. GI/Abdominal exam: Non-tender, Non-distended, soft, no peritoneal signs. Has abdominal wall edema as well. Extremities exam: 2+ pedal edema, no calf tenderness Neurological exam: CN II-XII intact, AO X3, no focal deficits. Skin exam: multiple ecchymosis, chronic stasis dermatitis b/l LE. - Assessment and Plan (1) Hypertension Current Visit: No Status: Chronic (2) Tobacco abuse Current Visit: No Status: Chronic (3) DVT prophylaxis Current Visit: No Status: Acute (4) COPD (chronic obstructive pulmonary disease) Current Visit: No Status: Chronic (5) CAD (coronary artery disease) Current Visit: No Status: Chronic (6) Ischemic cardiomyopathy Current Visit: No Status: Chronic (7) CHF exacerbation Current Visit: Yes Status: Acute (8) Pneumonia Current Visit: Yes Status: Acute (9) Generalized weakness Current Visit: Yes Status: Acute (10) Lactic acidosis Current Visit: Yes Status: Acute (11) SOB (shortness of breath) Current Visit: Yes Status: Acute - Summary of Assessment and Plan Summary of Assessment and Plan: Assessment Acute acute on chronic systolic chf COPD exacerbation Lactic acidosis- resolved elevated troponin Chronic anemia DVT prophylaxis Chronic severe cardiomyopathy-ischemic [employer] afib AICD COPD HTN HLD GERD CAD Tobacco abuse Plan - Diuresing better since started on albumin however still less than expected. Will switch lasix IV 40 BID to bumex and see how he responds. Bipap overnight prn. c/w spironolactone and albumin - antbiotics now stopped given negative urine antigen and RIP. lactic acid normalized. Tachycardia resolved. Blood culture NGTD. Monitor off antibiotics. Likely related to COPD and chf exacerbation - c/w bronchodilators schedule, steroids - elevated troponin, likely demand ischemia on baseline ischemic cardiomyopathy. - c/e home lisinopril, aspirin and betablocker. statin added for CAD and spironolactone added for better diuresis and cardiomyopathy. Monitor renal function carefully. Not significant urine output. - Patient not on Anticoagulation as he stopped it with epistaxis and multiple bleeding through skin scratches. He does not want to take any anticoagulation after discussing the risks of stroke. ECHO with ef of 30-35% which is slightly better, no LV thrombus, sev pul HTN, Mod LVH, mod rv hypokinesis. - Hbs stable. Monitor for now. - heparin for DVt prophylaxis - Time Spent with Patient Total time spent is greater than 50% in coordination of care (as documented) at patient's floor/unit and/or counseling patient: Internal Medicine: Result - Labs CBC & Chem 7: 09/04/18 07:14 09/06/18 08:45 Labs: BMP 09/06/18 08:45 Sodium 141 Potassium 3.7 Chloride 99 Carbon Dioxide 30 H BUN 26 H Creatinine 0.97 Glucose 136 H Calcium 9.6 - ABG Interpretation ABG results: PT/INR, D-dimer PT 15.3 Seconds (9.4-12.1) H 09/03/18 13:46 - Impressions Impressions Chest X-Ray 09/03/18 13:39 IMPRESSION: Pacemaker. Cardiomegaly. Atelectasis or infiltrates in the lung bases with bilateral pleural effusions. Follow up to resolution is suggested. D/ / 09/03/2018 14:33:32 Leta Stewart MD / pool Interpreting Provider: Leta Stewart MD Consult Discharge Plan - Plan Referrals: Jose Daniel Acosta DO [Primary Care Provider] - (Patient to call Dr. Acosta's office once they are released and schedule hospital follow up appointment) (1) Hypertension Qualifiers: Hypertension type: essential hypertension Qualified Code(s): I10 - Essential (primary) hypertension (4) COPD (chronic obstructive pulmonary disease) Qualifiers: COPD type: emphysema Emphysema type: unspecified Qualified Code(s): J43.9 - Emphysema, unspecified (5) CAD (coronary artery disease) Qualifiers: Coronary Disease-Associated Artery/Lesion type: bypass graft [place] vs. transplanted heart: [place] heart Associated angina: without angina Qualified Code(s): I25.810 - Atherosclerosis of coronary artery bypass graft(s) without angina pectoris (7) CHF exacerbation Qualifiers: Heart failure type: systolic Qualified Code(s): I50.23 - Acute on chronic systolic (congestive) heart failure (8) Pneumonia Qualifiers: Pneumonia type: due to unspecified organism Laterality: unspecified laterality Lung location: unspecified part of lung Qualified Code(s): J18.9 - Pneumonia, unspecified organism
[2018-09-06] MEDS: Bumetanide 1 MG/4 ML VIAL IVP SCH (16:40)
[2018-09-07] MEDS: Ipratropium/Albuterol Neb 3 ML IH SCH ×4 (03:33→22:21)
[2018-09-07] MEDS: *HR* Heparin 5,000 UNIT/ML VIAL SQ SCH ×3 (05:33→20:54)
--- NOTE | 2018-09-07 06:25 | Electrocardiograph Report ---
[facility] Test Date: 2018-09-03 Pat Name: Ruddy Elkins Department: [id number] Room: [facility] Gender: M [employer]: : 1945 Requested By: Everardo Krishna Order Number: [id number] Reading MD: Delta Romero Measurements Intervals [place] Rate: 107 P: 0 IN: 112 QRS: -89 QRSD: 125 T: 85 QT: 365 QTc: 487 Interpretive Statements Ventricular-paced complexes No further analysis attempted due to paced rhythm Electronically Signed On 09-07-2018 6:23:59 EDT by Delta Romero
[2018-09-07 06:46] LABS: Basophils % 0.1 %; Hemoglobin 8.9 g/dL (12.9-16.9); Immature Granulocytes % 0.4 % (0-4); Lymphocytes % 4.2 %
[2018-09-07 06:48] LABS: Hematocrit 32.5 % (37.5-50.1); Lymphocytes # 0.6 K/mcL (0.6-4.6); Mean Corpuscular HGB Conc 27.4 g/dL (31.6-35.5); Mean Corpuscular Hemoglobin 20.6 pg (28.0-33.3); Mean Corpuscular Volume 75.4 fL (83.0-100.0); Monocytes # 1.3 K/mcL (0.0-1.3); Monocytes % 9.4 %; Platelet Count 182 K/mcL (140-400); Red Blood Count 4.31 M/mcL (4.19-5.50); Red Cell Distribution Width 22.2 % (11.5-14.5); Segmented Neutrophils % 85.9 %
[2018-09-07 07:01] LABS: Neutrophils # 11.7 K/mcL (1.6-8.9)
[2018-09-07 08:28] LABS: Anisocytosis 2+ (Not Present); Hypochromasia Present (Not Present); Platelet Estimate Normal (Normal)
--- NOTE | 2018-09-07 08:41 | Internal Med Progress Note ---
Hospitalist Progress Note - Encounter Date of Encounter: 09/07/18 Time of Encounter: 08:41 - Subjective Interval History: Patient seen and examined this morning at bedside. No acute overnight events. Denies any fevers chills nausea vomiting and diarrhea. Denies any abdominal pain. Does mention his leg soreness is decreased. Did not notice any increase in urination yesterday. - Exam Vitals: Temp Pulse Resp BP Pulse Ox 98.0 F 87 18 122/75 99 09/07/18 08:06 09/07/18 08:06 09/07/18 08:06 09/07/18 08:06 09/07/18 08:06 Exam: Exam General: In no acute distress. Respiratory exam: no accessory muscle use. crackles at base b/l as well as rhonchi Cardiovascular exam: RRR, +S1, +S2. no murmur, gallop, rubs. GI/Abdominal exam: Non-tender, Non-distended, soft, no peritoneal signs. Has abdominal wall edema as well. Extremities exam: 2+ pedal edema, no calf tenderness, less tense LE Neurological exam: CN II-XII intact, AO X3, no focal deficits. Skin exam: multiple ecchymosis, chronic stasis dermatitis b/l LE. - Assessment and Plan (1) Hypertension Current Visit: No Status: Chronic (2) Tobacco abuse Current Visit: No Status: Chronic (3) DVT prophylaxis Current Visit: No Status: Acute (4) COPD (chronic obstructive pulmonary disease) Current Visit: No Status: Chronic (5) CAD (coronary artery disease) Current Visit: No Status: Chronic (6) Ischemic cardiomyopathy Current Visit: No Status: Chronic (7) CHF exacerbation Current Visit: Yes Status: Acute (8) Pneumonia Current Visit: Yes Status: Acute (9) Generalized weakness Current Visit: Yes Status: Acute (10) Lactic acidosis Current Visit: Yes Status: Acute (11) SOB (shortness of breath) Current Visit: Yes Status: Acute - Summary of Assessment and Plan Summary of Assessment and Plan: Assessment Acute acute on chronic systolic chf COPD exacerbation Lactic acidosis- resolved elevated troponin Chronic anemia DVT prophylaxis Chronic severe cardiomyopathy-ischemic [employer] afib AICD COPD HTN HLD GERD CAD Tobacco abuse Plan - Had better Diuresis with albumin. However not significant output still. c/w bumex and spironolactone. Will consult Nephrology for better diuretic regimen before discharging. - antbiotics was stopped given negative urine antigen and RIP. Blood culture NGTD. Given COPD exacerbation and continued rhonchi will treat emipircally with levaquin for pneumonia- organism unclear, possible bacterial. c/w bronchodilators schedule, steroids. Leukocytois possibly from steroids - elevated troponin, likely demand ischemia on baseline ischemic cardiomyopathy. - c/w home lisinopril, aspirin and betablocker. c/w statin and spironolactone added in hospital - Patient not on Anticoagulation as he stopped it with epistaxis and multiple bleeding through skin scratches. He does not want to take any anticoagulation after discussing the risks of stroke. ECHO with ef of 30-35% which is slightly better, no LV thrombus, sev pul HTN, Mod LVH, mod rv hypokinesis. - Hbs stable. Monitor for now. - heparin for DVt prophylaxis - Time Spent with Patient Total time spent is greater than 50% in coordination of care (as documented) at patient's floor/unit and/or counseling patient: Internal Medicine: Result - Labs CBC & Chem 7: 09/07/18 05:32 09/06/18 08:45 Labs: Short CBC 09/07/18 Range/Units 05:32 WBC 13.6 H D (4.3-11.1) K/mcL Hgb 8.9 L (12.9-16.9) g/dL Hct 32.5 L (37.5-50.1) % Plt Count 182 (140-400) K/mcL Neutrophils # 11.7 H (1.6-8.9) K/mcL BMP 09/06/18 08:45 Sodium 141 Potassium 3.7 Chloride 99 Carbon Dioxide 30 H BUN 26 H Creatinine 0.97 Glucose 136 H Calcium 9.6 - ABG Interpretation ABG results: PT/INR, D-dimer PT 15.3 Seconds (9.4-12.1) H 09/03/18 13:46 Consult Discharge Plan - Plan Referrals: Jose Daniel Acosta DO [Primary Care Provider] - (Patient to call Dr. Acosta's office once they are released and schedule hospital follow up appointment) (1) Hypertension Qualifiers: Hypertension type: essential hypertension Qualified Code(s): I10 - Essential (primary) hypertension (4) COPD (chronic obstructive pulmonary disease) Qualifiers: COPD type: emphysema Emphysema type: unspecified Qualified Code(s): J43.9 - Emphysema, unspecified (5) CAD (coronary artery disease) Qualifiers: Coronary Disease-Associated Artery/Lesion type: bypass graft [place] vs. transplanted heart: [place] heart Associated angina: without angina Qualified Code(s): I25.810 - Atherosclerosis of coronary artery bypass graft(s) without angina pectoris (7) CHF exacerbation Qualifiers: Heart failure type: systolic Qualified Code(s): I50.23 - Acute on chronic systolic (congestive) heart failure (8) Pneumonia Qualifiers: Pneumonia type: due to unspecified organism Laterality: unspecified laterality Lung location: unspecified part of lung Qualified Code(s): J18.9 - Pneumonia, unspecified organism
[2018-09-07] MEDS: Insulin LISPRO 300 UNITS/3 ML VIAL SQ SCH ×3 (09:27→17:23)
[2018-09-07] MEDS: Aspirin Enteric Coated 81 MG Tablet PO SCH (09:27)
[2018-09-07] MEDS: Bumetanide 1 MG/4 ML VIAL IVP SCH ×2 (09:27→17:23)
[2018-09-07] MEDS: Metoprolol XL (24 HR) Succ 50 MG TAB.ER.24H PO SCH (09:27)
[2018-09-07] MEDS: predniSONE 20 MG TABLET PO SCH (09:28)
[2018-09-07] MEDS: Spironolactone 25 MG TABLET PO SCH (09:28)
[2018-09-07] MEDS: levoFLOXacin 750 MG TABLET PO SCH (09:28)
[2018-09-07] MEDS ORDERED: Lactulose Oral Soln 20 GM/30 ML UDC PO ONE (16:44)
--- NOTE | 2018-09-07 18:31 | Nephrology Consult Note ---
<JoseJustin - Last Filed: 09/07/18 18:32> Date of Encounter: 09/07/18 Time of Encounter: 15:00 Assessment and Plan (1) Acute on chronic systolic CHF (congestive heart failure) Status: Resolved Setting of CHF exacerbation. Patient able to produce urine, so renal obstruction probably unlikely. UOP has improved today: UOP of 0.5 cc/kg/hr (last was 0.2 cc/kg/hr). Weight gain of about 1 kg since admission. Patient demonstrates volume overload on exam with +2 b/l pedal edema, +1 edema of the UE, and edema of the abdominal region. - Recommend to diruese patient with albumin before discharge. Also recommend to diurese patient with combination of lasix and metolazone. - Continue with lisinopril and spironolactone. - Will need to f/u in outpatient for monitoring of electrolyte levels. - Daily weights. - Strict I's and O's. (2) COPD exacerbation Status: Acute Emipircally treated with levaquin for pneumonia- organism unclear, possible bacterial. On bronchodilators schedule, steroids. - Management per primary team. (3) Anemia Status: Acute Chronic. Qualifiers: Qualified Code(s): D64.9 - Anemia, unspecified (4) Hypertension Status: Chronic BP controlled. On ARIANA- I, diruetic, and BB. - Management per primary team. 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 Patient attests that he has gained 25 pounds in the course of 3-4 days. Patient stated that he has been compliant on his medication and did not miss any diuretics. In ER patient was found tachycardic and tachypneic and therefore BiPAP was started. Bilateral wheezing and crackles was found on lung examination therefore he got treated for COPD and CHF with DuoNeb and 1 dose of Lasix. Rocephin and Zithromax was also given with concern of pneumonia. Initial lab with normal white count, raised lactic acid and raised BNP. Patient was admitted for possible CHF exacerbation COPD exacerbation, and pneumonia. Patient was being diuresed with lasix in addition to albumin, for which the patient seemed to respond to. However once albumin was stopped and lasix switched to Bumex, the patient's edema started to become worse again. Nephrology was consulted for further recommendations for diuresis before discharge. When seen today, the patient deines any history of kidney disease. He says that he is able to produce urine. Denies any dysruia. He denies any chest pain, SOB. Admits to abdominal distension. Says that he has not had a BM for the past 2 days. Denies abdominal pain, nausea, or vomiting. Says the swelling in his LE has improved however the swelling in his UE and abdomen has become worse. Denies fever. Past Med Surg Social Fam HX - Past Medical History Medical history: CHF, COPD, coronary artery disease, GERD, hyperlipidemia, hypertension, myocardial infarction Additional medical history: PULMONARY HTN Psychiatric history: no psych history - Past Surgical History Surgical History: angioplasty/stent, coronary bypass (CABG) Additional surgical history: CABG X 2 - Social History Smoking Status: Current every day smoker Packs per day: <1 Smokeless Tobacco Status: No Alcohol use: none Drug use: none - Family History Mother Family Member Ethnicity: Non- Living Status: Hx Family Cardiac Disorders: No Hx Family Respiratory Disorders: No Hx Family Cancer: No Hx Family GI Disorders: No Hx Family Endocrine Disorder: Yes Father Adopted: No Family Member Ethnicity: Non- Living Status: Hx Family Cardiac Disorders: No Hx Family Respiratory Disorders: No Hx Family Cancer: Yes Hx Family GI Disorders: No Hx Family Endocrine Disorder: No Hx Family Neuromuscular Disorders: No Hx Family Neurologic Disorders: No Hx Family HEENT Disorders: No Hx Family Autoimmune Disorders: No Medications and Allergies Omeprazole [PriLOSEC] 20 mg PO QAM 03/14/18 [History] Albuterol Neb [Proventil Neb] 2.5 mg IH Q8H PRN 06/23/18 [History] Albuterol Sulfate [Ventolin Hfa] 2 puff IH Q4-6H PRN 06/23/18 [History] Metoprolol Succinate [Toprol Xl] 100 mg PO DAILY 06/23/18 [History] Multivitamin [Daily Multiple Vitamin] 1 tab PO DAILY 06/23/18 [History] Lisinopril [Zestril] 2.5 mg PO DAILY #30 tablet 06/27/18 [Rx] Aspirin [Lo-Dose Aspirin EC] 81 mg PO DAILY 09/03/18 [History] Potassium Chloride [K-Tab ER] 20 meq PO Q48H 09/03/18 [History] Bumetanide [Bumex] 1 mg PO BID 7 Days #14 tablet 09/08/18 [Rx] Spironolactone [Aldactone] 12.5 mg PO DAILY 30 Days #30 tablet 09/08/18 [Rx] predniSONE [PredniSONE] See Taper PO DAILY 9 Days #18 tablet 09/08/18 [Rx] Allergy/AdvReac Type Severity Reaction Status Date / Time aspirin [ASA] AdvReac Gastrointestinal Verified 09/03/18 13:34 Upset Review of Systems Constitutional: no fever(s) Cardiovascular: edema, leg edema, no chest pain, no palpitations Respiratory: no cough, no dyspnea Gastrointestinal: constipation, no abdominal pain, no nausea, no vomiting Exam - Vital Signs Vital signs: Initial Vital Signs Temp Pulse Resp BP Pulse Ox 97.5 F L 125 25 143/79 98 09/03/18 13:32 09/03/18 13:32 09/03/18 13:32 09/03/18 13:32 09/03/18 13:32 Vital Signs - Last 8 Hours Temp Pulse Resp BP Pulse Ox 09/07/18 15:37 98.2 F 78 16 120/76 96 09/07/18 11:04 18 99 Intake and Output 09/07/18 09/07/18 09/07/18 07:59 15:59 23:59 Intake Total 220 / 220 Output Total 280 / 1380 1100 / 1380 Balance -280 / -1160 -880 / -1160 Intake: IV Fluids 100 / 100 Flexbumin 25 gm In 100 ml @ 60 100 / 100 mls/hr IVPB Q8HR SYLWIA Rx#: [id number] Oral 120 / 120 Output: Urine 280 / 1380 1100 / 1380 Other: Meal Breakfast Percent of Meal Consumed 90% Weight 105.8 kg Blood Glucose* 205 191 Patient Weight 09/07/18 23:59 Weight 105.8 kg - General Appearance General appearance: well-developed, well-nourished, appears started age Neck: no JVD Respiratory: wheezing (B/L in posterior posts) Cardiology: no murmurs, no rub, no gallops, edema (In UE, abdominal, and legs.), regular rate, regular rhythm, normal S1, normal S2 Gastrointestinal: normoactive bowel sounds, no tenderness, no guarding, no organomegaly, no masses, distended Integumentary: no rash, warm and dry Neurologic: no focal deficit, alert and oriented x3, strength 5/5 Musculoskeletal: no deformities, no erythema, no cyanosis, no clubbing Psychiatric: mood/affect appropriate, cooperative Results - Lab Results 09/07/18 05:32 09/06/18 08:45 Consult Discharge Plan - Plan Instructions: Spironolactone (By mouth), Bumetanide (By mouth), Prednisone (By mouth), Levofloxacin (By mouth) Referrals: Jose Daniel Acosta DO [Primary Care Provider] - (Patient to call Dr. Acosta's office once they are released and schedule hospital follow up appointment) Justice Stoll DO [Partnered Physician] - Lambert Guerrero MD [Non-Partnered Physician] - (Appointment has been requested.) Prescriptions: Spironolactone [Aldactone] 12.5 mg PO DAILY 30 Days #30 tablet Bumetanide [Bumex] 1 mg PO BID 7 Days #14 tablet predniSONE [PredniSONE] See Taper PO DAILY 9 Days #18 tablet <Jennifer Alejandro - Last Filed: 09/14/18 21:08> Date of Encounter: 09/07/18 Exam - Vital Signs Vital signs: Initial Vital Signs Temp Pulse Resp BP Pulse Ox 97.5 F L 125 25 143/79 98 09/03/18 13:32 09/03/18 13:32 09/03/18 13:32 09/03/18 13:32 09/03/18 13:32 Results - Lab Results 09/08/18 06:56 09/08/18 06:56 - Attending Attestation I examined this patient and my medical decision-making was reviewed with the Resident Physician. I agree with the documented findings, disposition and treatment plan as described except to the extent set forth below. In brief; 73 y o male with extensive cardiac history with CAD s/p ME with failed stent, s/p CABG, AICD and known cardiomyopathy with EF of approx. 25% and COPD admitted with worsening SOB and LE edema. Renal consulted for help with diuretics management though pt has no acutal renal disease. Pt apparently responded to lasix/iv albumin combo with UOP over 2liters which stopped once switched to bumex along with aldactone. On exam: NAD, lungs with decreased BS bases bilat and wheezes, abd distended, soft, NT ext: +LE edema bilat extending abdomen +UE bilat. Will check urine for proteinuria to rule out nephrotic syndrome. Advise continuation of iv lasix/albumin while hospitalized for continued diuresis since responsive. Fluid restriction advised at 1.5liters a day. Strict I/Os advised. Can add metalozone to regimen to further enhance diuresis while closely monitoring renal fxn.
[2018-09-08] MEDS: Ipratropium/Albuterol Neb 3 ML IH SCH ×3 (04:03→16:05)
[2018-09-08] MEDS: *HR* Heparin 5,000 UNIT/ML VIAL SQ SCH (05:42)
[2018-09-08 07:29] LABS: Basophils % 0.1 %; Immature Granulocytes % 0.5 % (0-4); Monocytes % 9.4 %; Red Cell Distribution Width 21.8 % (11.5-14.5)
[2018-09-08 07:31] LABS: Eosinophils % 0.3 %; Hematocrit 32.6 % (37.5-50.1); Hemoglobin 8.9 g/dL (12.9-16.9); Lymphocytes # 0.7 K/mcL (0.6-4.6); Lymphocytes % 6.1 %; Mean Corpuscular HGB Conc 27.3 g/dL (31.6-35.5); Mean Corpuscular Hemoglobin 20.3 pg (28.0-33.3); Mean Corpuscular Volume 74.4 fL (83.0-100.0); Monocytes # 1.1 K/mcL (0.0-1.3); Neutrophils # 9.4 K/mcL (1.6-8.9); Platelet Count 167 K/mcL (140-400); Red Blood Count 4.38 M/mcL (4.19-5.50); Segmented Neutrophils % 83.6 %
[2018-09-08 07:44] LABS: Anisocytosis 1+ (Not Present); Hypochromasia Present (Not Present); Platelet Estimate Normal (Normal)
[2018-09-08 07:47] LABS: BUN/Creatinine Ratio 35 (6-26); Blood Urea Nitrogen 31 mg/dL (8-23); Calcium 9.7 mg/dL (8.6-10.3); Carbon Dioxide 35 mEq/L (23-29); Chloride 99 mEq/L (98-107); Glucose 143 mg/dL (70-105); Osmolality,Calculated 301 (280-300); Sodium 141 mEq/L (136-145); eGFR For Non-African Americans > 60 (> 60)
[2018-09-08] MEDS: Insulin LISPRO 300 UNITS/3 ML VIAL SQ SCH ×2 (08:55→11:30)
[2018-09-08] MEDS ORDERED: Albumin 25% 25gram/100mL 25 GM/100 ML IV.SOLN IVPB SCH (08:57)
[2018-09-08] MEDS ORDERED: metOLazone 2.5 MG TABLET PO SCH (09:00)
[2018-09-08] MEDS: Spironolactone 25 MG TABLET PO SCH (11:29)
[2018-09-08] MEDS: predniSONE 20 MG TABLET PO SCH (11:29)
[2018-09-08] MEDS: Aspirin Enteric Coated 81 MG Tablet PO SCH (11:30)
[2018-09-08] MEDS: Metoprolol XL (24 HR) Succ 50 MG TAB.ER.24H PO SCH (11:30)
[2018-09-08] MEDS: levoFLOXacin 750 MG TABLET PO SCH (11:30)
--- NOTE | 2018-09-08 14:12 | Nephrology Progress Note ---
Date of Encounter: 09/08/18 Time of Encounter: 09:00 - Assessment and Plan (1) Acute on chronic systolic CHF (congestive heart failure) Current Visit: No Status: Resolved Setting of CHF exacerbation. Patient able to produce urine, so renal obstruction probably unlikely. Patient's UOP has improved. Weight has decreased from 106.3 to 105.8 kg. BP stable. Edema has also improved. Potassium level normal. - Continue with albumin, metolazone, and lasix treatment. - Continue with spironolactone and lisinopril. - Will need to f/u in outpatient for monitoring of electrolyte levels. - Daily weights. - Strict I's and O's. (2) COPD exacerbation Current Visit: Yes Status: Acute Emipircally treated with levaquin for pneumonia- organism unclear, possible bacterial. On bronchodilators schedule, steroids. - Management per primary team. (3) Anemia Current Visit: Yes Status: Acute Chronic. Qualifiers: Qualified Code(s): D64.9 - Anemia, unspecified (4) Hypertension Current Visit: No Status: Chronic BP controlled. On ARIANA- I, diruetic, and BB. Qualifiers: Hypertension type: essential hypertension Qualified Code(s): I10 - Essential (primary) hypertension (5) Pneumonia Current Visit: Yes Status: Acute Qualifiers: Pneumonia type: due to unspecified organism Laterality: unspecified laterality Lung location: unspecified part of lung Qualified Code(s): J18.9 - Pneumonia, unspecified organism Subjective Interval history: When seen today, patient denied any chest pain. He says that his breathing has improved from yesterday. He denies any nausea or vomiting. Denies fever. Denied abdominal pain. Admits to having a BM this morning. Denies any melena or hematochezia. Says the swelling in his UE and LE has decreased. Also says the swelling in his abdomen has also improved. Objective - Vital Signs Vital signs: Vital Signs Temp Pulse Resp BP Pulse Ox 09/08/18 11:45 97.5 F L 87 16 114/70 96 09/08/18 10:23 16 98 09/08/18 08:17 97.7 F 78 15 130/80 99 09/08/18 03:39 97.7 F 80 16 117/73 95 09/08/18 00:01 97.8 F 76 14 135/85 94 09/07/18 19:16 98.4 F 84 16 127/73 95 09/07/18 15:37 98.2 F 78 16 120/76 96 Intake and Output 09/07/18 09/08/18 09/08/18 23:59 07:59 15:59 Intake Total 240 / 720 480 / 720 Output Total 850 / 2230 500 / 700 200 / 700 Balance -850 / -2009 -260 / 20 280 / 20 Intake: Oral 240 / 720 480 / 720 Output: Urine 850 / 2230 500 / 700 200 / 700 Other: Meal Breakfast Percent of Meal Consumed 100% Blood Glucose* 196 183 - General Appearance General appearance: Present: well-developed, well-nourished, appears started age Neck: Present: no JVD Respiratory: Present: wheezing Cardiology: Present: no murmurs, no rub, no gallops, edema (+1 b/l pitting pedeal edema and +1 edma in UE and abdomen. ), regular rate, regular rhythm, normal S1, normal S2 Gastrointestinal: Present: normoactive bowel sounds, no tenderness, no guarding, no organomegaly, no masses Integumentary: Present: no rash, warm and dry Neurologic: Present: no focal deficit, alert and oriented x3, strength 5/5 Musculoskeletal: Present: no deformities, no erythema, no cyanosis, no clubbing Psychiatric: Present: mood/affect appropriate, cooperative - Lab 09/08/18 06:56 09/08/18 06:56 Most recent lab results 09/08/18 06:56 Calcium 9.7 Consult Discharge Plan - Plan Referrals: Jose Daniel Acosta DO [Primary Care Provider] - (Patient to call Dr. Acosta's office once they are released and schedule hospital follow up appointment)
[2018-09-08 15:58] VITALS: BP 122/76
--- NOTE | 2018-09-08 16:07 | Discharge Summary ---
- NOTES TO OUTPATIENT PROVIDER Notes to Outpatient Provider: Patient will need follow-up with nephrology and cardiology closely. We will need to be closely monitor for heart failure otherwise at risk of frequent admissions. Diuretics changed to Bumex 1 twice a day at least for a week and Lasix held for now. Also started on spironolactone. We will need BMP monitoring within a week. We will need close follow-up at heart failure center. Also discharged on steroid taper and finish course of antibiotic. Orders not resulted at time of discharge: Pending orders 09/03/18 16:53 Culture,Sputum with Gram Stain [RM] Stat Date of Encounter: 09/08/18 Time of Encounter: 15:57 - Discharge Diagnosis (1) Hypertension Priority: Secondary Status: Chronic Qualifiers: Hypertension type: essential hypertension Qualified Code(s): I10 - Essential (primary) hypertension (2) Tobacco abuse Priority: Secondary Status: Chronic (3) DVT prophylaxis Priority: Secondary Status: Acute (4) COPD (chronic obstructive pulmonary disease) Priority: Secondary Status: Chronic Qualifiers: COPD type: emphysema Emphysema type: unspecified Qualified Code(s): J43.9 - Emphysema, unspecified (5) CAD (coronary artery disease) Priority: Secondary Status: Chronic Qualifiers: Coronary Disease-Associated Artery/Lesion type: bypass graft [place] vs. transplanted heart: [place] heart Associated angina: without angina Qualified Code(s): I25.810 - Atherosclerosis of coronary artery bypass graft(s) without angina pectoris (6) Ischemic cardiomyopathy Priority: Secondary Status: Chronic (7) CHF exacerbation Priority: Primary Status: Acute (8) Pneumonia Priority: Primary Status: Acute Qualifiers: Pneumonia type: due to unspecified organism Laterality: unspecified laterality Lung location: unspecified part of lung Qualified Code(s): J18.9 - Pneumonia, unspecified organism (9) Generalized weakness Priority: Secondary Status: Acute (10) Lactic acidosis Priority: Primary Status: Acute (11) SOB (shortness of breath) Priority: Secondary Status: Acute (12) Anemia Priority: Secondary Status: Acute Qualifiers: Qualified Code(s): D64.9 - Anemia, unspecified (13) COPD exacerbation Priority: Primary Status: Acute (14) Elevated troponin Priority: Primary Status: Resolved Hospital course: Mr. Elkins is a 73 year old male with past medical history of COPD, CAD, chronic A. fib, hypertension, hyperlipidemia, severe cardiomyopathy with ejection fraction of 28 status post AICD came in with complaint of shortness of breath, leg swelling and weakness. Patient was started on treatment for CHF exacerbation, COPD exacerbation and pneumonia. Patient was also found to have lactic acidosis and infiltrate on chest x-ray. Patient was found to have elevated troponin as well. Patient was started on IV Lasix. Patient did not want any anticoagulation as he had bleeding from it before. Patient improved with antibiotics bronchodilators and Lasix however was not having significant urine output. She was started on spironolactone as well. He did have some output with albumin and Lasix. Diuretics were changed to Bumex which did work for him somewhat better but the next day urine output dropped again after. Nephrology was consulted to help better diurese who initially recommended metolazone and lasix. Patient insistent on leaving home however still with significant volume overload. After discussion with nephrology I decided to discharge with bumex and spironlactone. Discussed extensively with patient that he still needs significant volume to be remote and close follow-up with nephrology cardiology and at heart failure center as well as his PCP for electrolyte monitoring. Discussed extensively about salt and water intake to prevent further worsening. We will finish antibiotic course of steroid taper as outpatient Discharge discussed with: patient, nurse, social work, franchise field consultant - Time Spent with Patient Total time spent providing and/or coordinating discharge services: Time spent: Greater than 30 minutes (40) - Discharge Medications Prescriptions: New Spironolactone [Aldactone] 12.5 mg PO DAILY 30 Days #30 tablet Bumetanide [Bumex] 1 mg PO BID 7 Days #14 tablet levoFLOXacin [Levaquin] 750 mg PO DAILY 2 Days #2 tablet predniSONE [PredniSONE] See Taper PO DAILY 9 Days #18 tablet Continued Omeprazole [PriLOSEC] 20 mg PO QAM Albuterol Neb [Proventil Neb] 2.5 mg IH Q8H PRN PRN Reason: Shortness Of Breath Albuterol Sulfate [Ventolin Hfa] 2 puff IH Q4-6H PRN PRN Reason: Shortness Of Breath Metoprolol Succinate [Toprol Xl] 100 mg PO DAILY Multivitamin [Daily Multiple Vitamin] 1 tab PO DAILY Lisinopril [Zestril] 2.5 mg PO DAILY #30 tablet Aspirin [Lo-Dose Aspirin EC] 81 mg PO DAILY Potassium Chloride [K-Tab ER] 20 meq PO Q48H Discontinued Furosemide [Lasix] 40 mg PO DAILY Home Medications: Omeprazole [PriLOSEC] 20 mg PO QAM 03/14/18 [History] Albuterol Neb [Proventil Neb] 2.5 mg IH Q8H PRN 06/23/18 [History] Albuterol Sulfate [Ventolin Hfa] 2 puff IH Q4-6H PRN 06/23/18 [History] Metoprolol Succinate [Toprol Xl] 100 mg PO DAILY 06/23/18 [History] Multivitamin [Daily Multiple Vitamin] 1 tab PO DAILY 06/23/18 [History] Lisinopril [Zestril] 2.5 mg PO DAILY #30 tablet 06/27/18 [Rx] Aspirin [Lo-Dose Aspirin EC] 81 mg PO DAILY 09/03/18 [History] Potassium Chloride [K-Tab ER] 20 meq PO Q48H 09/03/18 [History] Bumetanide [Bumex] 1 mg PO BID 7 Days #14 tablet 09/08/18 [Rx] Spironolactone [Aldactone] 12.5 mg PO DAILY 30 Days #30 tablet 09/08/18 [Rx] levoFLOXacin [Levaquin] 750 mg PO DAILY 2 Days #2 tablet 09/08/18 [Rx] predniSONE [PredniSONE] See Taper PO DAILY 9 Days #18 tablet 09/08/18 [Rx] Allergies/Adverse Reactions: Allergy/AdvReac Type Severity Reaction Status Date / Time aspirin [ASA] AdvReac Gastrointestinal Verified 09/03/18 13:34 Upset Date of admission: 09/03/18 20:06 Primary care physician: Jose Daniel Cordero Colopy Consults: 09/03/18 16:22 Consult to Health And Safety Tech [CONS] Routine Reason for SW Consult: Discharge plan 09/06/18 14:10 Consult to Nurse Navigator [CONS] Routine Comment: chf, pna 09/07/18 08:42 Consult to Nephrology [CONS] Routine Consulting Provider: [facility]/KATHY/ÁNGEL/DEMETRIO Reason for Consult: optimize diuresis for chf Call Completed: Yes Discharging clinician: Yadira Tinajero - Constitutional Vitals: Temp Pulse Resp BP Pulse Ox 97.5 F L 87 16 114/70 96 09/08/18 11:45 09/08/18 11:45 09/08/18 11:45 09/08/18 11:45 09/08/18 11:45 Exam: Exam General: In no acute distress. Respiratory exam: no accessory muscle use. crackles at base and scattered rhonchi Cardiovascular exam: RRR, +S1, +S2. no murmur, gallop, rubs. GI/Abdominal exam: Non-tender, Non-distended, soft, no peritoneal signs. Has abdominal wall edema as well. Extremities exam: 2+ pedal edema, no calf tenderness, less tense LE Neurological exam: CN II-XII intact, AO X3, no focal deficits. Skin exam: multiple ecchymosis, chronic stasis dermatitis b/l LE. - Patient Status Disposition: Home, Self-Care Condition: Good - Discharge Instructions Follow Up With: Jose Daniel Acosta DO [Primary Care Provider] - (Patient to call Dr. Acosta's office once they are released and schedule hospital follow up appointment) Lambert Guerrero MD [Non-Partnered Physician] - (Appointment has been requested.) Justice Stoll DO [Partnered Physician] -
== END 2018-09-08 18:00 | disposition home or self-care (01) | DRG 291 ==
LOC: 3BNU 13:27 → EMEROOARM 13:27 → 2NNU 18:14 → SUATTDRO 20:06 → 3BNU 09-06 12:15
PROVIDERS: ADMIT Internal Medicine Nephrology; ATTEND Internal Medicine

== ENCOUNTER 2019-02-23 16:42 | Inpatient (IN) ==
[2019-02-23 17:47] LABS: Basophils % 0.5 %; Hemoglobin 13.7 g/dL (12.9-16.9); Mean Corpuscular Hemoglobin 28.5 pg (28.0-33.3); Red Blood Count 4.81 M/mcL (4.19-5.50); Red Cell Distribution Width 19.6 % (11.5-14.5)
[2019-02-23 17:48] LABS: Eosinophils # 0.2 K/mcL (0.0-0.6); Eosinophils % 2.7 %; Immature Granulocytes % 0.2 % (0-4); Lymphocytes # 0.5 K/mcL (0.6-4.6); Mean Corpuscular HGB Conc 31.9 g/dL (31.6-35.5); Mean Corpuscular Volume 89.4 fL (83.0-100.0); Monocytes # 0.9 K/mcL (0.0-1.3); Monocytes % 11.1 %; Segmented Neutrophils % 79.5 %; White Blood Count 8.5 K/mcL (4.3-11.1)
[2019-02-23 17:50] LABS: Neutrophils # 6.8 K/mcL (1.6-8.9); Platelet Count 82 K/mcL (140-400)
[2019-02-23 18:16] LABS: BUN/Creatinine Ratio 31 (6-26); Blood Urea Nitrogen 24 mg/dL (8-23); Calcium 9.2 mg/dL (8.6-10.3); Carbon Dioxide 32 mEq/L (23-29); Chloride 102 mEq/L (98-107); Glucose 194 mg/dL (70-105); Osmolality,Calculated 301 (280-300); Potassium 4.2 mEq/L (3.5-5.1); Sodium 141 mEq/L (136-145); eGFR For African Americans > 60 (> 60); eGFR For Non-African Americans > 60 (> 60)
[2019-02-23 18:25] LABS: Platelet Estimate Decreased (Normal)
[2019-02-23 18:26] LABS: Troponin I 0.07 ng/mL (< 0.04)
[2019-02-23] MEDS ORDERED: Nitroglycerin 1 INCH/GM PACKET TP ONE (18:37)
[2019-02-23] MEDS ORDERED: Furosemide 40 MG/4 ML VIAL IVP ONE (18:37)
[2019-02-23 19:07] LABS: VBG HCO3 33 mEq/L (21-27); VBG PCO2 53 mmHg (41-51); VBG PH 7.41 pH Units (7.32-7.42); VBG PO2 69 mmHg (25-50)
[2019-02-23 20:04] LABS: Bilirubin,Urine Negative (Negative); Blood,Urine Negative (Negative); Clarity,Urine Clear (Clear); Color,Urine Yellow (Yellow); Glucose,Urine (UA) Normal (Normal); Ketones,Urine Negative (Negative); Leukocyte Esterase,Urine Negative (Negative); Nitrite,Urine Negative (Negative); Protein,Urine 30 mg/dL (Neg-Trace); Specific Gravity,Urine 1.017 (1.010-1.025)
[2019-02-23 20:07] LABS: Bacteria,Urine None Seen per hpf (None-Few); Hyaline Casts,Urine None Seen per lpf (None-Few); RBC,Urine 0-3 per hpf (0-3); Squamous Epithelial Cell,Urine Few per lpf (None-Few); WBC,Urine 0-3 per hpf (0-3)
[2019-02-23] MEDS ORDERED: Naloxone 0.4 MG/ML INJ IVP PRN (21:48)
[2019-02-23] MEDS ORDERED: Nitroglycerin 0.4 MG TAB.SUBL SL PRN (21:49)
[2019-02-23] MEDS ORDERED: cefTRIAXone 1,000 MG in Water for inj. (sterile) 10 ML IVP SCH (22:00)
[2019-02-23] MEDS ORDERED: Apixaban 5 MG TABLET PO SCH (22:00)
[2019-02-23] MEDS: Ipratropium/Albuterol Neb 3 ML IH SCH (23:11)
[2019-02-24] MEDS: Lactobacillus 1 EACH CAP.SPRINK PO SCH ×2 (00:45→09:35)
[2019-02-24] MEDS: Nystatin SUSP 5 ML UD.LIQ PO SCH ×5 (00:46→21:50)
[2019-02-24 02:01] LABS: Immature Granulocytes % 0.3 % (0-4)
[2019-02-24 02:02] LABS: INR 1.3; Prothrombin Time 14.2 Seconds (9.4-12.1)
[2019-02-24 02:03] LABS: Basophils # 0.1 K/mcL (0.0-0.2); Basophils % 0.5 %; Eosinophils # 0.3 K/mcL (0.0-0.6); Eosinophils % 2.8 %; Hematocrit 43.1 % (37.5-50.1); Hemoglobin 13.2 g/dL (12.9-16.9); Immature Platelets 10.8 % (1.1-6.1); Lymphocytes # 0.7 K/mcL (0.6-4.6); Lymphocytes % 7.4 %; Mean Corpuscular HGB Conc 30.6 g/dL (31.6-35.5); Mean Corpuscular Hemoglobin 27.7 pg (28.0-33.3); Mean Corpuscular Volume 90.5 fL (83.0-100.0); Monocytes # 1.2 K/mcL (0.0-1.3); Monocytes % 12.1 %; Red Blood Count 4.76 M/mcL (4.19-5.50); Red Cell Distribution Width 19.6 % (11.5-14.5); Segmented Neutrophils % 76.9 %; White Blood Count 9.7 K/mcL (4.3-11.1)
[2019-02-24 02:07] LABS: Neutrophils # 7.5 K/mcL (1.6-8.9); Platelet Count 81 K/mcL (140-400)
[2019-02-24] MEDS ORDERED: *HR* Heparin 5,000 UNIT/ML VIAL IVP PRN ×2 (02:14)
[2019-02-24] MEDS ORDERED: Heparin 25,000 UNIT/250 ML D5W 25,000 UNIT/250 ML IV.SOLN IVC SCH (02:15)
[2019-02-24 02:17] LABS: Alanine Aminotransferase 30 Units/L (7-52); Albumin 3.6 g/dL (3.5-5.7); Albumin/Globulin Ratio 1.1 (1.1-2.2); Alkaline Phosphatase 79 Units/L (34-104); Aspartate Amino Transferase 26 Units/L (13-39); BUN/Creatinine Ratio 28 (6-26); Blood Urea Nitrogen 23 mg/dL (8-23); Calcium 9.2 mg/dL (8.6-10.3); Carbon Dioxide 33 mEq/L (23-29); Chloride 101 mEq/L (98-107); Globulin 3.2 g/dL (2.4-3.5); Glucose 138 mg/dL (70-105); Magnesium 1.8 mg/dL (1.6-2.6); Osmolality,Calculated 298 (280-300); Phosphorous 3.9 mg/dL (2.7-4.5); Sodium 141 mEq/L (136-145); Total Protein 6.8 g/dL (6.4-8.9); eGFR For African Americans > 60 (> 60); eGFR For Non-African Americans > 60 (> 60)
[2019-02-24 02:28] LABS: Troponin I 0.09 ng/mL (< 0.04)
[2019-02-24 03:43] LABS: Estimated Average Glucose 148 mg/dl
[2019-02-24] MEDS: Ipratropium/Albuterol Neb 3 ML IH SCH ×4 (04:47→22:08)
[2019-02-24 04:53] LABS: Mean Corpuscular HGB Conc 30.7 g/dL (31.6-35.5)
[2019-02-24 04:55] LABS: Hemoglobin 13.5 g/dL (12.9-16.9); Immature Platelets 11.9 % (1.1-6.1); Mean Corpuscular Volume 91.1 fL (83.0-100.0); Red Blood Count 4.83 M/mcL (4.19-5.50); Red Cell Distribution Width 19.5 % (11.5-14.5)
[2019-02-24 04:56] LABS: Platelet Count 79 K/mcL (140-400)
[2019-02-24 04:59] LABS: INR 1.2; Prothrombin Time 13.8 Seconds (9.4-12.1)
[2019-02-24] MEDS ORDERED: predniSONE 20 MG TABLET PO SCH (09:00)
[2019-02-24] MEDS ORDERED: Aspirin Enteric Coated 81 MG Tablet PO SCH (09:00)
[2019-02-24] MEDS ORDERED: Lactulose Oral Soln 20 GM/30 ML UDC PO PRN (10:08)
[2019-02-24] MEDS: Furosemide 40 MG/4 ML VIAL IVP SCH ×2 (13:00→21:32)
[2019-02-24] MEDS: Ondansetron ODT 4 MG TAB.RAPDIS SL PRN (13:15)
[2019-02-24] MEDS ORDERED: Prochlorperazine 10 MG/2 ML VIAL IVP ONE (14:14)
[2019-02-24] MEDS ORDERED: *HR* Promethazine 25 MG/ML VIAL IVP PRN (14:16)
[2019-02-24] MEDS ORDERED: *HR* Heparin 5,000 UNIT/ML VIAL SQ SCH (18:00)
[2019-02-24] MEDS: Ranolazine 500 MG TAB.ER.12H PO SCH (21:33)
[2019-02-24 22:08] LABS: INR 1.2; Prothrombin Time 14.1 Seconds (9.4-12.1)
[2019-02-25] MEDS ORDERED: *HR* Metoprolol 5 MG/5 ML VIAL IVP ONE ×2 (00:47→00:54)
[2019-02-25 02:40] LABS: Hematocrit 42.6 % (37.5-50.1); Hemoglobin 13.3 g/dL (12.9-16.9); Immature Platelets 11.4 % (1.1-6.1); Mean Corpuscular HGB Conc 31.2 g/dL (31.6-35.5); Mean Corpuscular Hemoglobin 28.7 pg (28.0-33.3); Red Blood Count 4.63 M/mcL (4.19-5.50); Red Cell Distribution Width 19.6 % (11.5-14.5); White Blood Count 8.3 K/mcL (4.3-11.1)
[2019-02-25 02:43] LABS: Platelet Count 84 K/mcL (140-400)
[2019-02-25 02:58] LABS: BUN/Creatinine Ratio 25 (6-26); Blood Urea Nitrogen 25 mg/dL (8-23); Calcium 9.1 mg/dL (8.6-10.3); Carbon Dioxide 32 mEq/L (23-29); Chloride 99 mEq/L (98-107); Glucose 159 mg/dL (70-105); Magnesium 1.9 mg/dL (1.6-2.6); Osmolality,Calculated 300 (280-300); Potassium 4.2 mEq/L (3.5-5.1); Sodium 141 mEq/L (136-145); eGFR For African Americans > 60 (> 60); eGFR For Non-African Americans > 60 (> 60)
[2019-02-25] MEDS: Ipratropium/Albuterol Neb 3 ML IH SCH ×4 (03:42→22:07)
[2019-02-25] MEDS ORDERED: Metoprolol XL (24 HR) Succ 25 MG TAB.ER.24H PO SCH (09:00)
[2019-02-25] MEDS: Metoprolol XL (24 HR) Succ 25 MG TAB.ER.24H PO SCH (09:57)
[2019-02-25] MEDS: Furosemide 40 MG/4 ML VIAL IVP SCH ×3 (09:58→20:38)
[2019-02-25] MEDS: Lactobacillus 1 EACH CAP.SPRINK PO SCH (09:58)
[2019-02-25] MEDS: Multivit/Ca/Min/Fe/FA 1 TAB TABLET PO SCH (09:58)
[2019-02-25] MEDS: Ranolazine 500 MG TAB.ER.12H PO SCH ×2 (09:58→20:18)
[2019-02-25] MEDS: Nystatin SUSP 5 ML UD.LIQ PO SCH ×4 (09:58→20:18)
[2019-02-25 10:04] LABS: Hepatitis B Surface Antigen Nonreactive (Nonreactive)
[2019-02-25 10:33] LABS: Hepatitis B Core IgM Nonreactive (Nonreactive)
[2019-02-25 10:34] LABS: Hepatitis C Virus Antibody Nonreactive (Nonreactive)
[2019-02-25 10:35] LABS: Hepatitis A Antibody IgM Nonreactive (Nonreactive)
[2019-02-25] MEDS ORDERED: Lidocaine -MPF 1% 2 ML VIAL ID PRN (14:21)
[2019-02-25 15:43] LABS: RBC,Pleural Fluid 0.002 M/mcL
[2019-02-25 15:58] LABS: Glucose,Pleural Fluid 167 mg/dL (No Ref Range); LDH,Pleural Fluid 57 Units/L (No Ref Range); Total Protein,Pleural Fluid < 3.0 g/dL
[2019-02-25 16:10] LABS: Lactate Dehydrogenase 249 Units/L (140-271); Total Protein 6.7 g/dL (6.4-8.9)
[2019-02-25 16:38] LABS: Basophils,Pleural Fluid 0 %; Eosinophils,Pleural Fluid 0 %
[2019-02-25 16:40] LABS: Appearance of Pleural Fl Clear (Clear)
[2019-02-26 03:31] LABS: Red Blood Count 4.27 M/mcL (4.19-5.50); Red Cell Distribution Width 19.2 % (11.5-14.5)
[2019-02-26 03:33] LABS: Hematocrit 39.9 % (37.5-50.1); Immature Platelets 9.7 % (1.1-6.1); Mean Corpuscular HGB Conc 30.1 g/dL (31.6-35.5); Mean Corpuscular Hemoglobin 28.1 pg (28.0-33.3); Mean Corpuscular Volume 93.4 fL (83.0-100.0); White Blood Count 9.6 K/mcL (4.3-11.1)
[2019-02-26 03:38] LABS: Platelet Count 90 K/mcL (140-400)
[2019-02-26 03:42] LABS: BUN/Creatinine Ratio 34 (6-26); Blood Urea Nitrogen 30 mg/dL (8-23); Calcium 8.9 mg/dL (8.6-10.3); Carbon Dioxide 35 mEq/L (23-29); Chloride 98 mEq/L (98-107); Glucose 144 mg/dL (70-105); Osmolality,Calculated 297 (280-300); Potassium 3.7 mEq/L (3.5-5.1); Sodium 139 mEq/L (136-145); eGFR For African Americans > 60 (> 60); eGFR For Non-African Americans > 60 (> 60)
[2019-02-26] MEDS: Ipratropium/Albuterol Neb 3 ML IH SCH ×4 (04:10→22:01)
[2019-02-26] MEDS: Ranolazine 500 MG TAB.ER.12H PO SCH ×2 (08:39→20:00)
[2019-02-26] MEDS: Nystatin SUSP 5 ML UD.LIQ PO SCH ×4 (08:39→20:01)
[2019-02-26] MEDS: Furosemide 40 MG/4 ML VIAL IVP SCH ×2 (08:39→16:59)
[2019-02-26] MEDS: Metoprolol XL (24 HR) Succ 25 MG TAB.ER.24H PO SCH (08:40)
[2019-02-26] MEDS: Lactobacillus 1 EACH CAP.SPRINK PO SCH (08:40)
[2019-02-26] MEDS: Multivit/Ca/Min/Fe/FA 1 TAB TABLET PO SCH (08:40)
[2019-02-26] MEDS: *HR* Heparin 5,000 UNIT/ML VIAL SQ SCH (20:01)
[2019-02-26] MEDS ORDERED: Acetaminophen 325 MG TABLET PO ONE (20:31)
[2019-02-26] MEDS ORDERED: traMADol 50 MG TABLET PO ONE (22:29)
[2019-02-27] MEDS: Ipratropium/Albuterol Neb 3 ML IH SCH ×4 (03:52→22:00)
[2019-02-27] MEDS ORDERED: traMADol 50 MG TABLET PO ONE (04:23)
[2019-02-27] MEDS: *HR* Heparin 5,000 UNIT/ML VIAL SQ SCH ×2 (05:11→16:55)
[2019-02-27 05:21] LABS: Hematocrit 39.7 % (37.5-50.1); Hemoglobin 12.2 g/dL (12.9-16.9); Mean Corpuscular HGB Conc 30.7 g/dL (31.6-35.5); Mean Corpuscular Hemoglobin 28.6 pg (28.0-33.3); Mean Corpuscular Volume 93.2 fL (83.0-100.0); Red Blood Count 4.26 M/mcL (4.19-5.50); Red Cell Distribution Width 19.1 % (11.5-14.5); White Blood Count 6.8 K/mcL (4.3-11.1)
[2019-02-27 05:23] LABS: Platelet Count 85 K/mcL (140-400)
[2019-02-27 05:42] LABS: BUN/Creatinine Ratio 33 (6-26); Blood Urea Nitrogen 30 mg/dL (8-23); Calcium 8.5 mg/dL (8.6-10.3); Carbon Dioxide 32 mEq/L (23-29); Chloride 97 mEq/L (98-107); Glucose 196 mg/dL (70-105); Osmolality,Calculated 296 (280-300); Potassium 3.7 mEq/L (3.5-5.1); Sodium 137 mEq/L (136-145); eGFR For African Americans > 60 (> 60); eGFR For Non-African Americans > 60 (> 60)
[2019-02-27] MEDS: Ranolazine 500 MG TAB.ER.12H PO SCH ×2 (07:53→21:37)
[2019-02-27] MEDS: Lactobacillus 1 EACH CAP.SPRINK PO SCH (07:54)
[2019-02-27] MEDS: Nystatin SUSP 5 ML UD.LIQ PO SCH ×4 (07:54→21:34)
[2019-02-27] MEDS: Multivit/Ca/Min/Fe/FA 1 TAB TABLET PO SCH (07:54)
[2019-02-27] MEDS: Metoprolol XL (24 HR) Succ 25 MG TAB.ER.24H PO SCH (07:54)
[2019-02-27] MEDS ORDERED: Furosemide 40 MG/4 ML VIAL IVP SCH (08:00)
[2019-02-27] MEDS: Furosemide 80 MG in 0.9 % Sodium Chloride 50 ML IV SCH ×2 (09:27→16:57)
[2019-02-28 02:39] LABS: BUN/Creatinine Ratio 31 (6-26); Blood Urea Nitrogen 26 mg/dL (8-23); Calcium 8.5 mg/dL (8.6-10.3); Carbon Dioxide 30 mEq/L (23-29); Chloride 96 mEq/L (98-107); Glucose 122 mg/dL (70-105); Magnesium 1.9 mg/dL (1.6-2.6); Osmolality,Calculated 288 (280-300); Potassium 3.8 mEq/L (3.5-5.1); Sodium 136 mEq/L (136-145); eGFR For African Americans > 60 (> 60); eGFR For Non-African Americans > 60 (> 60)
[2019-02-28] MEDS: Ipratropium/Albuterol Neb 3 ML IH SCH ×4 (04:37→22:03)
[2019-02-28] MEDS: *HR* Heparin 5,000 UNIT/ML VIAL SQ SCH ×3 (06:02→18:11)
[2019-02-28] MEDS ORDERED: Apixaban 5 MG TABLET PO SCH (09:00)
[2019-02-28] MEDS ORDERED: metOLazone 5 MG TABLET PO SCH (09:00)
[2019-02-28] MEDS: Metoprolol XL (24 HR) Succ 25 MG TAB.ER.24H PO SCH (09:18)
[2019-02-28] MEDS: Lactobacillus 1 EACH CAP.SPRINK PO SCH (09:18)
[2019-02-28] MEDS: Ranolazine 500 MG TAB.ER.12H PO SCH ×2 (09:18→22:05)
[2019-02-28] MEDS: Multivit/Ca/Min/Fe/FA 1 TAB TABLET PO SCH (09:18)
[2019-02-28] MEDS: metOLazone 5 MG TABLET PO SCH ×2 (09:18→16:10)
[2019-02-28] MEDS: Nystatin SUSP 5 ML UD.LIQ PO SCH ×4 (09:19→22:05)
[2019-02-28] MEDS ORDERED: Furosemide 80 MG in 0.9 % Sodium Chloride 50 ML IV SCH (09:30)
[2019-02-28] MEDS: Furosemide 80 MG in 0.9 % Sodium Chloride 50 ML IV SCH ×2 (10:00→17:29)
[2019-02-28] MEDS ORDERED: metOLazone 5 MG TABLET PO ONE (13:00)
[2019-02-28 15:00] LABS: Immature Reticulocyte % 20.8 % (11.0-38.0); Retculocyte # 0.05 M/mcL (0.05-0.10); Reticulocyte % 1.1 % (1.6-2.8)
[2019-02-28 15:42] LABS: Folate > 22.3 ng/mL (3.0-16.0); Vitamin B12 830 pg/mL (250-1100)
[2019-03-01] MEDS: Ipratropium/Albuterol Neb 3 ML IH SCH ×4 (04:16→22:31)
[2019-03-01 04:32] LABS: BUN/Creatinine Ratio 32 (6-26); Blood Urea Nitrogen 26 mg/dL (8-23); Calcium 8.8 mg/dL (8.6-10.3); Carbon Dioxide 36 mEq/L (23-29); Chloride 93 mEq/L (98-107); Glucose 131 mg/dL (70-105); Magnesium 1.9 mg/dL (1.6-2.6); Osmolality,Calculated 291 (280-300); Potassium 3.4 mEq/L (3.5-5.1); Sodium 137 mEq/L (136-145); eGFR For African Americans > 60 (> 60); eGFR For Non-African Americans > 60 (> 60)
[2019-03-01] MEDS: Metoprolol XL (24 HR) Succ 25 MG TAB.ER.24H PO SCH (07:46)
[2019-03-01] MEDS: Multivit/Ca/Min/Fe/FA 1 TAB TABLET PO SCH (07:46)
[2019-03-01] MEDS: Apixaban 5 MG TABLET PO SCH ×2 (07:46→19:56)
[2019-03-01] MEDS: Furosemide 80 MG in 0.9 % Sodium Chloride 50 ML IV SCH ×2 (07:47→16:05)
[2019-03-01] MEDS: Nystatin SUSP 5 ML UD.LIQ PO SCH ×4 (07:47→22:17)
[2019-03-01] MEDS: Ranolazine 500 MG TAB.ER.12H PO SCH ×2 (07:47→19:54)
[2019-03-01] MEDS: Lactobacillus 1 EACH CAP.SPRINK PO SCH (07:47)
[2019-03-01] MEDS: metOLazone 5 MG TABLET PO SCH ×2 (07:47→16:04)
[2019-03-02] MEDS ORDERED: Ipratropium/Albuterol Neb 3 ML IH PRN (00:09)
[2019-03-02 02:02] LABS: Hematocrit 40.7 % (37.5-50.1); Hemoglobin 13.5 g/dL (12.9-16.9); Immature Platelets 9.8 % (1.1-6.1); Mean Corpuscular HGB Conc 33.2 g/dL (31.6-35.5); Mean Corpuscular Hemoglobin 28.7 pg (28.0-33.3); Mean Corpuscular Volume 86.4 fL (83.0-100.0); Red Blood Count 4.71 M/mcL (4.19-5.50); White Blood Count 7.2 K/mcL (4.3-11.1)
[2019-03-02 02:06] LABS: Platelet Count 90 K/mcL (140-400)
[2019-03-02 02:16] LABS: BUN/Creatinine Ratio 30 (6-26); Blood Urea Nitrogen 26 mg/dL (8-23); Calcium 9.3 mg/dL (8.6-10.3); Carbon Dioxide 38 mEq/L (23-29); Chloride 92 mEq/L (98-107); Glucose 159 mg/dL (70-105); Osmolality,Calculated 288 (280-300); Potassium 4.1 mEq/L (3.5-5.1); Sodium 135 mEq/L (136-145); eGFR For African Americans > 60 (> 60); eGFR For Non-African Americans > 60 (> 60)
[2019-03-02] MEDS: Metoprolol XL (24 HR) Succ 25 MG TAB.ER.24H PO SCH (07:47)
[2019-03-02] MEDS: Nystatin SUSP 5 ML UD.LIQ PO SCH ×4 (07:47→22:14)
[2019-03-02] MEDS: Apixaban 5 MG TABLET PO SCH ×2 (07:47→22:14)
[2019-03-02] MEDS: Lactobacillus 1 EACH CAP.SPRINK PO SCH (07:47)
[2019-03-02] MEDS: Multivit/Ca/Min/Fe/FA 1 TAB TABLET PO SCH (07:48)
[2019-03-02] MEDS: Furosemide 80 MG in 0.9 % Sodium Chloride 50 ML IV SCH ×2 (07:48→16:00)
[2019-03-02] MEDS: metOLazone 5 MG TABLET PO SCH ×2 (07:48→15:59)
[2019-03-02] MEDS: Ranolazine 500 MG TAB.ER.12H PO SCH ×2 (07:48→22:14)
[2019-03-03] MEDS: Lactobacillus 1 EACH CAP.SPRINK PO SCH (09:11)
[2019-03-03] MEDS: Apixaban 5 MG TABLET PO SCH ×2 (09:12→20:07)
[2019-03-03] MEDS: Ranolazine 500 MG TAB.ER.12H PO SCH ×2 (09:13→20:07)
[2019-03-03] MEDS: Multivit/Ca/Min/Fe/FA 1 TAB TABLET PO SCH (09:13)
[2019-03-03] MEDS: Metoprolol XL (24 HR) Succ 25 MG TAB.ER.24H PO SCH (09:17)
[2019-03-03] MEDS: metOLazone 5 MG TABLET PO SCH ×2 (09:19→16:44)
[2019-03-03] MEDS: Nystatin SUSP 5 ML UD.LIQ PO SCH ×2 (09:21→13:53)
[2019-03-03] MEDS: Furosemide 80 MG in 0.9 % Sodium Chloride 50 ML IV SCH ×2 (10:04→17:37)
[2019-03-03 11:04] LABS: BUN/Creatinine Ratio 32 (6-26); Blood Urea Nitrogen 23 mg/dL (8-23); Calcium 9.4 mg/dL (8.6-10.3); Carbon Dioxide 36 mEq/L (23-29); Chloride 90 mEq/L (98-107); Glucose 168 mg/dL (70-105); Magnesium 1.5 mg/dL (1.6-2.6); Osmolality,Calculated 284 (280-300); Potassium 3.3 mEq/L (3.5-5.1); Sodium 133 mEq/L (136-145); eGFR For African Americans > 60 (> 60); eGFR For Non-African Americans > 60 (> 60)
[2019-03-04 03:01] LABS: BUN/Creatinine Ratio 32 (6-26); Blood Urea Nitrogen 25 mg/dL (8-23); Calcium 9.8 mg/dL (8.6-10.3); Carbon Dioxide 35 mEq/L (23-29); Chloride 87 mEq/L (98-107); Glucose 136 mg/dL (70-105); Magnesium 1.7 mg/dL (1.6-2.6); Osmolality,Calculated 276 (280-300); Potassium 3.9 mEq/L (3.5-5.1); Sodium 130 mEq/L (136-145); eGFR For African Americans > 60 (> 60); eGFR For Non-African Americans > 60 (> 60)
[2019-03-04] MEDS: Apixaban 5 MG TABLET PO SCH ×2 (08:33→19:35)
[2019-03-04] MEDS: Lactobacillus 1 EACH CAP.SPRINK PO SCH (08:33)
[2019-03-04] MEDS: metOLazone 5 MG TABLET PO SCH (08:33)
[2019-03-04] MEDS: Metoprolol XL (24 HR) Succ 25 MG TAB.ER.24H PO SCH (08:34)
[2019-03-04] MEDS: Multivit/Ca/Min/Fe/FA 1 TAB TABLET PO SCH (08:34)
[2019-03-04] MEDS: Ranolazine 500 MG TAB.ER.12H PO SCH ×2 (08:34→19:35)
[2019-03-04] MEDS: Furosemide 80 MG in 0.9 % Sodium Chloride 50 ML IV SCH (09:55)
[2019-03-04 12:08] LABS: Anaplasma phagocytophilum IgG <1:80 (<1:80); Anaplasma phagocytophilum IgM < 1:16 (< 1:16)
[2019-03-04] MEDS: Furosemide 40 MG TABLET PO SCH (17:19)
[2019-03-05 03:26] LABS: BUN/Creatinine Ratio 40 (6-26); Blood Urea Nitrogen 34 mg/dL (8-23); Calcium 9.4 mg/dL (8.6-10.3); Carbon Dioxide 35 mEq/L (23-29); Chloride 89 mEq/L (98-107); Glucose 122 mg/dL (70-105); Osmolality,Calculated 281 (280-300); Potassium 3.7 mEq/L (3.5-5.1); Sodium 131 mEq/L (136-145); eGFR For African Americans > 60 (> 60); eGFR For Non-African Americans > 60 (> 60)
[2019-03-05] MEDS: Ondansetron ODT 4 MG TAB.RAPDIS SL PRN (09:30)
[2019-03-05] MEDS: Metoprolol XL (24 HR) Succ 25 MG TAB.ER.24H PO SCH (09:31)
[2019-03-05] MEDS: Furosemide 40 MG TABLET PO SCH ×2 (09:31→15:18)
[2019-03-05] MEDS: Apixaban 5 MG TABLET PO SCH ×2 (09:31→20:32)
[2019-03-05] MEDS: Ranolazine 500 MG TAB.ER.12H PO SCH ×2 (09:31→20:32)
[2019-03-05] MEDS: Lactobacillus 1 EACH CAP.SPRINK PO SCH (09:31)
[2019-03-05] MEDS: Multivit/Ca/Min/Fe/FA 1 TAB TABLET PO SCH (09:31)
[2019-03-06 06:19] LABS: Hemoglobin 14.9 g/dL (12.9-16.9); Red Cell Distribution Width 17.8 % (11.5-14.5)
[2019-03-06 06:21] LABS: Hematocrit 45.7 % (37.5-50.1); Immature Platelets 9.1 % (1.1-6.1); Mean Corpuscular HGB Conc 32.6 g/dL (31.6-35.5); Mean Corpuscular Hemoglobin 28.7 pg (28.0-33.3); Mean Corpuscular Volume 87.9 fL (83.0-100.0); Platelet Count 110 K/mcL (140-400); White Blood Count 7.2 K/mcL (4.3-11.1)
[2019-03-06 06:44] LABS: BUN/Creatinine Ratio 43 (6-26); Blood Urea Nitrogen 47 mg/dL (8-23); Calcium 9.1 mg/dL (8.6-10.3); Carbon Dioxide 36 mEq/L (23-29); Chloride 88 mEq/L (98-107); Glucose 131 mg/dL (70-105); Osmolality,Calculated 290 (280-300); Potassium 3.8 mEq/L (3.5-5.1); Sodium 133 mEq/L (136-145); eGFR For African Americans > 60 (> 60); eGFR For Non-African Americans > 60 (> 60)
[2019-03-06] MEDS: Furosemide 40 MG TABLET PO SCH (10:03)
[2019-03-06] MEDS: Apixaban 5 MG TABLET PO SCH (10:04)
[2019-03-06] MEDS: Lactobacillus 1 EACH CAP.SPRINK PO SCH (10:04)
[2019-03-06] MEDS: Multivit/Ca/Min/Fe/FA 1 TAB TABLET PO SCH (10:04)
[2019-03-06] MEDS: Ranolazine 500 MG TAB.ER.12H PO SCH (10:04)
[2019-03-06 11:34] VITALS: BP 104/72
[2019-03-06 13:27] LABS: BUN/Creatinine Ratio 47 (6-26); Blood Urea Nitrogen 45 mg/dL (8-23); Carbon Dioxide 36 mEq/L (23-29); Chloride 88 mEq/L (98-107); Glucose 126 mg/dL (70-105); Osmolality,Calculated 287 (280-300); Potassium 3.7 mEq/L (3.5-5.1); Sodium 132 mEq/L (136-145); eGFR For African Americans > 60 (> 60); eGFR For Non-African Americans > 60 (> 60)
[2019-03-07] MEDS ORDERED: Metoprolol XL (24 HR) Succ 25 MG TAB.ER.24H PO SCH (09:00)
== END 2019-03-06 18:00 | DRG 280 ==
LOC: EMEROOARM 16:42 → 2NENU 16:42 → SUATTDRO 18:51 → 2NENU 19:58
PROVIDERS: ADMIT Internal Medicine; ATTEND Internal Medicine

== ENCOUNTER 2021-03-24 15:44 | Observation (INO) ==
[2021-03-24 16:13] LABS: Basophils % 0.5 %; Eosinophils # 0.1 K/mcL (0.0-0.6); Eosinophils % 1.6 %; Hematocrit 40.2 % (37.5-50.1); Immature Granulocytes % 0.5 % (0-4); Lymphocytes # 0.7 K/mcL (0.6-4.6); Lymphocytes % 9.3 %; Mean Corpuscular HGB Conc 32.3 g/dL (31.6-35.5); Mean Corpuscular Hemoglobin 32.3 pg (28.0-33.3); Mean Corpuscular Volume 99.8 fL (83.0-100.0); Monocytes # 0.6 K/mcL (0.0-1.3); Monocytes % 8.1 %; Neutrophils # 6.3 K/mcL (1.6-8.9); Platelet Count 148 K/mcL (140-400); Red Blood Count 4.03 M/mcL (4.19-5.50); Red Cell Distribution Width 12.6 % (11.5-14.5); White Blood Count 7.9 K/mcL (4.3-11.1)
[2021-03-24 16:20] LABS: INR 1.3; Prothrombin Time 14.3 Seconds (9.4-12.1)
[2021-03-24 16:27] LABS: BUN/Creatinine Ratio 16 (6-26); Blood Urea Nitrogen 16 mg/dL (8-23); Calcium 9.1 mg/dL (8.6-10.3); Carbon Dioxide 31 mEq/L (23-29); Chloride 102 mEq/L (98-107); Glucose 142 mg/dL (70-105); Magnesium 1.8 mg/dL (1.6-2.6); Osmolality,Calculated 292 (280-300); Potassium 3.9 mEq/L (3.5-5.1); Sodium 139 mEq/L (136-145); Troponin I 0.03 ng/mL (< 0.04); eGFR For African Americans > 60 (> 60); eGFR For Non-African Americans > 60 (> 60)
[2021-03-24] MEDS ORDERED: Ondansetron 4 MG/2 ML VIAL IVP PRN (21:12)
[2021-03-24] MEDS ORDERED: Acetaminophen 325 MG TABLET PO PRN (21:12)
[2021-03-24] MEDS ORDERED: Naloxone 0.4 MG/ML INJ IVP PRN (21:12)
[2021-03-25] MEDS ORDERED: Perflutren Lipid Microsphere 1.3 ML in 0.9 % Sodium Chloride 8.7 ML IVP PRN (00:18)
[2021-03-25 01:16] LABS: Bacteria,Urine Few per hpf (None-Few); Bilirubin,Urine Negative (Negative); Blood,Urine Negative (Negative); Clarity,Urine Clear (Clear); Color,Urine Yellow (Yellow); Glucose,Urine (UA) Normal (Normal); Hyaline Casts,Urine Few per lpf (None Seen); Ketones,Urine Negative (Negative); Leukocyte Esterase,Urine Negative (Negative); Mucus,Urine Few per lpf (None-Few); Nitrite,Urine Negative (Negative); Protein,Urine 30 mg/dL (Neg-Trace); Specific Gravity,Urine 1.028 (1.010-1.025)
[2021-03-25 01:28] LABS: Basophils # 0.1 K/mcL (0.0-0.2); Basophils % 0.6 %; Eosinophils # 0.1 K/mcL (0.0-0.6); Eosinophils % 1.5 %; Hematocrit 41.4 % (37.5-50.1); Hemoglobin 13.3 g/dL (12.9-16.9); Immature Granulocytes % 0.2 % (0-4); Lymphocytes # 0.6 K/mcL (0.6-4.6); Lymphocytes % 7.7 %; Mean Corpuscular HGB Conc 32.1 g/dL (31.6-35.5); Mean Corpuscular Hemoglobin 32.7 pg (28.0-33.3); Mean Corpuscular Volume 101.7 fL (83.0-100.0); Mean Platelet Volume 12.3 fL (9.4-12.4); Monocytes # 0.8 K/mcL (0.0-1.3); Monocytes % 9.9 %; Neutrophils # 6.6 K/mcL (1.6-8.9); Platelet Count 143 K/mcL (140-400); Red Blood Count 4.07 M/mcL (4.19-5.50); Red Cell Distribution Width 12.9 % (11.5-14.5); Segmented Neutrophils % 80.1 %; White Blood Count 8.2 K/mcL (4.3-11.1)
[2021-03-25 02:00] LABS: BUN/Creatinine Ratio 17 (6-26); Blood Urea Nitrogen 16 mg/dL (8-23); Calcium 9.4 mg/dL (8.6-10.3); Carbon Dioxide 32 mEq/L (23-29); Chloride 103 mEq/L (98-107); Chol/HDL Ratio 3.2 (0-4.9); Cholesterol 158 mg/dL (< 200); Glucose 132 mg/dL (70-105); HDL Cholesterol 50 mg/dL (40-59); LDL Cholesterol,Calculated 96 mg/dL (< 100); Magnesium 2.2 mg/dL (1.6-2.6); Osmolality,Calculated 293 (280-300); Phosphorous 3.4 mg/dL (2.7-4.5); Potassium 5.1 mEq/L (3.5-5.1); Sodium 140 mEq/L (136-145); Thyroid Stimulating Hormone 1.733 mcIU/mL (0.340-5.600); Triglycerides 59 mg/dL (< 150); eGFR For African Americans > 60 (> 60); eGFR For Non-African Americans > 60 (> 60)
[2021-03-25 03:14] LABS: Estimated Average Glucose 126 mg/dl
[2021-03-25] MEDS ORDERED: Albuterol 2.5 MG/3 ML NEBULIZER IH PRN (05:13)
[2021-03-25] MEDS ORDERED: Furosemide 40 MG TABLET PO PRN ×2 (05:13→09:00)
[2021-03-25] MEDS ORDERED: Apixaban 2.5 MG TABLET PO SCH (09:00)
[2021-03-25] MEDS ORDERED: Metoprolol XL (24 HR) Succ 25 MG TAB.ER.24H PO SCH (09:00)
[2021-03-25] MEDS: Budesonide/Formoterol 160/4.5 1 PUFF INH IH SCH ×2 (09:12→19:50)
[2021-03-25] MEDS: Ranolazine 500 MG TAB.ER.12H PO SCH ×2 (11:16→21:25)
[2021-03-25] MEDS: lisinopriL 5 MG TABLET PO SCH (11:16)
[2021-03-25] MEDS: Metoprolol XL (24 HR) Succ 25 MG TAB.ER.24H PO SCH (21:24)
[2021-03-25] MEDS: Apixaban 2.5 MG TABLET PO SCH (21:25)
[2021-03-26] MEDS: Budesonide/Formoterol 160/4.5 1 PUFF INH IH SCH ×2 (08:22→21:22)
[2021-03-26] MEDS: Metoprolol XL (24 HR) Succ 25 MG TAB.ER.24H PO SCH ×3 (08:42→19:55)
[2021-03-26] MEDS: lisinopriL 5 MG TABLET PO SCH (08:43)
[2021-03-26] MEDS: Apixaban 2.5 MG TABLET PO SCH ×2 (08:44→19:55)
[2021-03-26] MEDS: Ranolazine 500 MG TAB.ER.12H PO SCH ×2 (08:44→19:55)
[2021-03-26] MEDS: *HR* Amiodarone 200 MG TABLET PO SCH ×2 (11:09→19:55)
[2021-03-27 04:09] LABS: BUN/Creatinine Ratio 24 (6-26); Blood Urea Nitrogen 19 mg/dL (8-23); Calcium 8.8 mg/dL (8.6-10.3); Carbon Dioxide 27 mEq/L (23-29); Chloride 100 mEq/L (98-107); Glucose 126 mg/dL (70-105); Osmolality,Calculated 284 (280-300); Sodium 135 mEq/L (136-145); eGFR For African Americans > 60 (> 60); eGFR For Non-African Americans > 60 (> 60)
[2021-03-27 07:16] VITALS: BP 95/64; PULSE 61; TEMP 97.8
[2021-03-27] MEDS: Ranolazine 500 MG TAB.ER.12H PO SCH (10:40)
[2021-03-27] MEDS: Apixaban 2.5 MG TABLET PO SCH (10:40)
[2021-03-27] MEDS: Metoprolol XL (24 HR) Succ 25 MG TAB.ER.24H PO SCH (10:40)
[2021-03-27] MEDS: lisinopriL 5 MG TABLET PO SCH (10:40)
[2021-03-27] MEDS: *HR* Amiodarone 200 MG TABLET PO SCH (10:41)
[2021-03-27] MEDS: Budesonide/Formoterol 160/4.5 1 PUFF INH IH SCH (10:44)
[2021-03-27 16:22] VITALS: O2SAT 98
== END 2021-03-27 14:33 | disposition home or self-care (01) ==
LOC: 2NNU 15:44 → EMEROOARM 15:44 → SUATTDRO 23:02 → 2NNU 23:54 → 3NENU 03-25 03:54
PROVIDERS: ADMIT Internal Medicine; ATTEND Internal Medicine